=== PATIENT | female | born 1950 | race Caucasian/White ===

== ENCOUNTER 2020-05-15 12:23 | Outpatient (RCR) | payer MEDICARE, OTHER, SELFPAY | END 2020-06-02 23:59 | disposition home or self-care (01) | LOC: SPT 12:23 | PROVIDERS: Family Provider Family Medicine; PCP Family Medicine; Referring Provider Family Medicine; Visit Provider Family Medicine | DX: R32 Unspecified urinary incontinence (principal) | CPT/HCPCS: 97110; 97161; 97530 ==

== ENCOUNTER 2020-06-03 06:00 | Outpatient (RCR) | payer MEDICARE, OTHER, SELFPAY | END 2020-07-03 23:59 | disposition home or self-care (01) | LOC: SPT 06:00 | PROVIDERS: Family Provider Family Medicine; PCP Family Medicine; Referring Provider Family Medicine; Visit Provider Family Medicine | DX: M54.5 Low back pain (principal) | CPT/HCPCS: 97110; 97112; 97164; 97530 ==

== ENCOUNTER 2020-07-04 06:00 | Outpatient (RCR) | payer MEDICARE, OTHER, SELFPAY | END 2020-08-03 23:59 | disposition home or self-care (01) | LOC: SPT 06:00 | PROVIDERS: PCP Family Medicine; Referring Provider Family Medicine; Visit Provider Family Medicine | DX: M54.5 Low back pain (principal) | CPT/HCPCS: 97110; 97112 ==

== ENCOUNTER 2020-08-04 06:00 | Outpatient (RCR) | payer MEDICARE, OTHER, SELFPAY | END 2020-08-28 23:00 | disposition home or self-care (01) | LOC: SPT 06:00 | PROVIDERS: PCP Family Medicine; Referring Provider Family Medicine; Visit Provider Family Medicine | DX: M54.5 Low back pain (principal) | CPT/HCPCS: 97110; 97530 ==

== ENCOUNTER → 2021-04-06 14:49 | Outpatient (BNVA) | payer MEDICARE, OTHER, SELFPAY | PROVIDERS: PCP Family Medicine; Referring Provider Family Medicine; Visit Provider Specialist | DX: M16.11 Unilateral primary osteoarthritis, right hip (principal) | CPT/HCPCS: 73502 ==

== ENCOUNTER 2021-04-16 16:34 | Outpatient (CLI) | payer MEDICARE, OTHER, SELFPAY ==
--- NOTE | 2021-04-16 16:45 | MR_ITS ---
WS: [id number] MRI BILATERAL HIPS without CONTRAST. COMPARISON: 04/06/2021 Multiplanar, multisequence imaging is performed without contrast. There is a small amount of increased T2 signal within the RIGHT greater trochanter extending towards the intertrochanteric line. There is a small subchondral cyst over the greater trochanter. No fractur e identified. There is a small amount of increased T2 signal and edema within the tendons of the glut eus minimus and medius at the greater trochanter. There is mild fluid distention of the greater troch anteric bursa. There is a very small amount of increased T2 signal in the gluteus tendons over the LEFT greater troc hanter. No focal fluid. Only a tiny amount of increased marrow signal in the greater trochanter. No f ractures. The remaining soft tissues of the pelvis are symmetric. SI joints are negative with no edema. No eros ions are identified. MR/MR hips BI wo con [id number] IMPRESSION: 1. Moderate amount of increased T2 signal in the RIGHT gluteus minimus and med ius muscles and tendons over the greater trochanter with adjacent free fluid. T his is most consistent with a bursitis. 2. There is also small amount of marrow edema in the RIGHT greater trochanter extending towards the intertrochanteric line. No fracture identified.
== END 2021-04-16 16:35 | disposition home or self-care (01) ==
LOC: RADSHAW 16:37
PROVIDERS: PCP Family Medicine; Visit Provider Specialist
DX: M25.552 Pain in left hip (principal); M25.551 Pain in right hip; R60.9 Edema, unspecified
CPT/HCPCS: 73721

== ENCOUNTER → 2021-06-17 08:20 | Outpatient (BNVA) | payer MEDICARE, OTHER, SELFPAY | PROVIDERS: PCP Family Medicine; Referring Provider Specialist; Visit Provider Anesthesiology Pain Medicine | DX: M25.552 Pain in left hip (principal); M70.61 Trochanteric bursitis, right hip; M48.062 Spinal stenosis, lumbar region with neurogenic claudication; M47.816 Spondylosis without myelopathy or radiculopathy, lumbar region; M51.36 Other intervertebral disc degeneration, lumbar region; Z79.899 Other long term (current) drug therapy; Y93.9 Activity, unspecified | CPT/HCPCS: 99204; 99205 ==

== ENCOUNTER 2021-06-22 15:56 | Outpatient (CLI) | payer MEDICARE, OTHER, SELFPAY ==
--- NOTE | 2021-06-22 16:15 | CT_ITS ---
WS: [id number] Exam: CT hip RT wo con* [id number] Date/Time of Exam: 06/22/2021 4:30 PM Reason For Exam: M25.559 - Pain in unspecified hip DLP: 689.[address] scans at [facility] use at least one of these dose optimization techniques: automated e xposure control; mA and/or kV adjustment per patient size (includes targeted exams where dose is matc hed to clinical indication); or iterative reconstruction. The hip is evaluated in the axial plane with sagittal and coronal reformatted images. No acute fracture or dislocation. Mild DJD of the joint compartment. No obvious joint effusion. No phuong ne destruction. Adjacent myofascial soft tissue structures are unremarkable. CT/CT hip RT wo con* [id number] IMPRESSION: 1. No acute fracture or bone destruction. 2. Mild DJD of the joint compartment. 3. Adjacent soft tissue structures are unremarkable. No joint effusion.
== END 2021-06-22 15:57 | disposition home or self-care (01) ==
PROVIDERS: PCP Family Medicine; Visit Provider Specialist
DX: M16.11 Unilateral primary osteoarthritis, right hip (principal)
CPT/HCPCS: 73700

== ENCOUNTER → 2021-07-08 14:31 | Outpatient (BNVA) | payer MEDICARE, OTHER, SELFPAY | PROVIDERS: PCP Family Medicine; Visit Provider Anesthesiology Pain Medicine | DX: M70.61 Trochanteric bursitis, right hip (principal); E11.9 Type 2 diabetes mellitus without complications; M54.9 Dorsalgia, unspecified; Z01.812 Encounter for preprocedural laboratory examination; Y93.9 Activity, unspecified | CPT/HCPCS: 20610; 36416; 77002; 82962; J1030; J3490 ==

== ENCOUNTER 2021-07-20 15:41 | Outpatient (CLI) | payer MEDICARE, OTHER, SELFPAY ==
--- NOTE | 2021-07-20 16:00 | MR_ITS ---
WS: [id number] MRI LUMBAR SPINE NONCONTRAST TECHNIQUE: Sagittal T1, T2 and STIR imaging. Axial T1 and T2 imaging. CLINICAL INFORMATION: M48.062 - Spinal stenosis, lumbar region with neurogenic ... COMPARISON: None. FINDINGS: Small disc protrusion T3-4 seen on the change room attendant imaging with mild to moderate central canal stenosis and indentation on the thoracic cord. Mild central canal stenosis in the cervical spine at C4-C6. Mild lumbar curve. No acute compression. Disc bulging worse L4-5. L1-L2: No significant disc bulging. Spinal canal and foramen are patent. L2-L3: Mild disc bulging with slight effacement of ventral thecal sac. Slight narrowing of the subart icular recess bilaterally. Mild facet arthropathy. Foramen are patent. Mild annular bulging with slig ht effacement of ventral thecal sac. L3-L4: Mild right foraminal narrowing with a small right foraminal protrusion. Mild to moderate facet arthropathy. Spinal canal is patent. L4-L5: Mild disc bulging with slight effacement of ventral thecal sac. Mild right and no significant left foraminal narrowing. Narrowing of the subarticular recess bilaterally. Mild to moderate facet ar thropathy. L5-S1: Mild disc osteophytic ridging. Mild facet arthropathy. Spinal canal and foramen are patent. Visualized pelvic bony structures: Normal. Paravertebral soft tissues: Normal. MR/MR lumbar spine wo con* [id number] IMPRESSION: 1. Small right foraminal protrusion L3-4 with slight impingement on the exitin g right L3 nerve root and mild right foraminal narrowing. 2. Right eccentric disc bulging L4-5 with mild right L4-5 foraminal narrowing. Contact of the exiting right L4 nerve root. 3. Annular bulging L4-5 with slight narrowing of the subarticular recess bilat erally. 4. Central disc protrusion T3-T4 seen on the change room attendant imaging with mild to modera te central canal stenosis and slight indentation on the thoracic cord. This can be further evaluated with thoracic spine MRI.
== END 2021-07-20 15:42 | disposition home or self-care (01) ==
PROVIDERS: PCP Family Medicine; Visit Provider Anesthesiology Pain Medicine
DX: M48.062 Spinal stenosis, lumbar region with neurogenic claudication (principal); M51.26 Other intervertebral disc displacement, lumbar region; M51.24 Other intervertebral disc displacement, thoracic region
CPT/HCPCS: 72148

== ENCOUNTER → 2021-07-22 09:39 | Outpatient (BNVA) | payer MEDICARE, OTHER, SELFPAY | PROVIDERS: PCP Family Medicine; Visit Provider Anesthesiology Pain Medicine | DX: M47.816 Spondylosis without myelopathy or radiculopathy, lumbar region (principal); M51.36 Other intervertebral disc degeneration, lumbar region; M70.61 Trochanteric bursitis, right hip; Y93.9 Activity, unspecified | CPT/HCPCS: 99214 ==

== ENCOUNTER → 2021-07-30 14:40 | Outpatient (BNVA) | payer MEDICARE, OTHER, SELFPAY | PROVIDERS: PCP Family Medicine; Visit Provider Anesthesiology Pain Medicine | DX: M54.16 Radiculopathy, lumbar region (principal); E11.9 Type 2 diabetes mellitus without complications; Z79.84 Long term (current) use of oral hypoglycemic drugs | CPT/HCPCS: 36416; 64483; 64484; 82962 ==

== ENCOUNTER → 2021-08-12 13:15 | Outpatient (BNVA) | payer MEDICARE, OTHER, SELFPAY | PROVIDERS: PCP Family Medicine; Visit Provider Anesthesiology Pain Medicine | DX: M54.16 Radiculopathy, lumbar region (principal); E11.9 Type 2 diabetes mellitus without complications | CPT/HCPCS: 36416; 64483; 64484; 82962; J1100; J3490 ==

== ENCOUNTER → 2021-09-01 14:00 | Outpatient (BNVA) | payer MEDICARE, OTHER, SELFPAY | PROVIDERS: PCP Family Medicine; Visit Provider Anesthesiology Pain Medicine | DX: M25.512 Pain in left shoulder (principal); M70.61 Trochanteric bursitis, right hip; M47.816 Spondylosis without myelopathy or radiculopathy, lumbar region; M51.36 Other intervertebral disc degeneration, lumbar region; M79.604 Pain in right leg; M79.605 Pain in left leg; Y93.9 Activity, unspecified | CPT/HCPCS: 99215 ==

== ENCOUNTER → 2022-06-30 10:06 | Outpatient (BNVA) | payer MEDICARE, OTHER, SELFPAY | PROVIDERS: PCP Family Medicine; Visit Provider Internal Medicine Pulmonary Disease | DX: I25.10 Atherosclerotic heart disease of native coronary artery without angina pectoris (principal); G47.33 Obstructive sleep apnea (adult) (pediatric); Z86.73 Personal history of transient ischemic attack (TIA), and cerebral infarction without residual deficits | CPT/HCPCS: 99213; 99214 ==

== ENCOUNTER 2022-12-22 17:44 | Emergency (ER) | payer MEDICARE, OTHER, SELFPAY ==
[2022-12-22] VITALS (8 sets, daily range): BP systolic 113–140; BP diastolic 55–71; PULSE 66–83; RESP 14–16; TEMP 36.7; O2SAT 96–99; BMI 28.3
--- NOTE | 2022-12-22 18:03 | ECG_ITS ---
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 Measurements Intervals Christopher Rate: 82 P: 2 AZ: 134 QRS: -12 QRSD: 93 T: 21 QT: 378 QTc: 442 Interpretive Statements SINUS RHYTHM Compared to ECG 01/02/2019 22:58:08 Sinus bradycardia no longer present Electronically Signed On 12-22-2022 18:19:04 CDT by Gorge Flowers M.D. [id number]
--- NOTE | 2022-12-22 18:05 | XRR_ITS ---
PROCEDURE INFORMATION: Exam: XR Chest Exam date and time: 12/22/2022 6:15 PM Age: 72 years old Clinical indication: Other: CVA TECHNIQUE: Imaging protocol: Radiologic exam of the chest. Views: 1 view. COMPARISON: CR XR chest 1V [id number] 01/02/2019 6:26 PM FINDINGS: Lungs: Visualized portions of the lungs are clear. Pleural spaces: Unremarkable. No pleural effusion. No pneumothorax. Heart/Mediastinum: Heart is within normal limits of size. Vasculature: There is some atherosclerotic calcification of the aortic arch. Bones/joints: Unremarkable. XR/XR chest 1V portable [id number] IMPRESSION: No acute infiltrate.
--- NOTE | 2022-12-22 18:05 | CTR_ITS ---
PROCEDURE INFORMATION: Exam: CT Head Without Contrast Exam date and time: 12/22/2022 6:07 PM Age: 72 years old Clinical indication: Stroke-like symptoms; Other: RT face numbness/paresthesia; Additional info: Symptoms of acute stroke TECHNIQUE: Imaging protocol: Computed tomography of the head without contrast. Radiation optimization: All CT scans at this facility use at least one of these dose optimization techniques: automated exposure control; mA and/or kV adjustment per patient size (includes targeted exams where dose is matched to clinical indication); or iterative reconstruction. Other technique: STROKE PROTOCOL was implemented. REPORTING DATA: Count of CT and Cardiac NM exams in prior 12 months: This patient has received 0 known CTs and 0 known cardiac nuclear medicine studies in the 12 months prior to the current study. COMPARISON: CT Head wo IV contrast* [id number] 01/02/2019 6:10 PM RADIATION DOSE METRICS: Total DLP (mGy-cm): 1045 FINDINGS: Brain: There is a chronic right-sided infarct in the right basal ganglia region corresponding with the location of the infarcts seen on 01/02/2019. There is mild cortical atrophy. Low-density changes in the white matter are consistent with nonspecific small vessel chronic ischemic change. There is no intracranial mass, hemorrhage or edema. Cerebral ventricles: No ventriculomegaly. Paranasal sinuses: Visualized sinuses are unremarkable. No fluid levels. Mastoid air cells: Visualized mastoid air cells are well aerated. Bones/joints: Unremarkable. No acute fracture. Soft tissues: Unremarkable. CT/CT head thrombolytic [id number] IMPRESSION: Chronic lacunar infarct. No acute intracranial finding. ASSESSMENT: ASPECTS ([place] Stroke Program Early CT Score) is 10.
--- NOTE | 2022-12-22 18:08 | W.ED.NEUROSD ---
HPI - Neuro Symptoms/Deficit General: Chief Complaint: Neuro Symptoms/Deficit Stated Complaint: stroke like symptoms Time Seen by Provider: 12/22/22 17:58 History of Present Illness: Presents to the ER with complaining of right-sided weakness and tingling numbness in her right face. Patient said she laid down at 4 PM and when she woke up at 4:30 PM she had this going on. And it was not going on when she laid down. Patient has had a right-sided stroke in the past with similar symptoms. Patient has no obvious deficit at this time. Patient does take 81 mg aspirin daily but is on no other anticoagulant. Onset (ago): hour(s) (1.5 hours ago) Last Observed Normal: 16:00 Timing confirmed by: spouse Location: right face History of same: Yes Severity: similar to previous episodes Quality: numb and tingling Relieving factors: none Exacerbating factors: none Context: sudden onset (Woke up this way) On Anticoagulants: No Associated symptoms: Reports headache(s) Treatments Prior to Arrival: none and Aspirin (Patient takes an 81 mg aspirin every day and that roughly 5 PM she took another aspirin of unknown strength.) Review of Systems General: Reports: 10 or more systems reviewed and unremarkable except in HPI and below Neuro: Reports: headache(s) PFSH ED PFSH: Medical History ASHD (arteriosclerotic heart disease) History of CVA (cerebrovascular accident) Hyperlipidemia associated with type 2 diabetes mellitus Family History Other CAD (coronary artery disease) Diabetes Stroke Social History Smoking and tobacco status: never smoked Alcohol intake: never Substance/Drug Use: never Caregiver/support person: Yes Lives independently: Yes Physical Exam Const: COMMON NORMALS: no acute distress, average body habitus, patient oriented x3, no limitations, healthy appearing, alert and well nourished HENMT: COMMON NORMALS: normocephalic, atraumatic, hearing grossly normal bilaterally, external ears normal, Normal external nose present and moist oral mucous membranes HEAD & SCALP: normocephalic and atraumatic NOSE: Normal external nose present EXTERNAL EAR: Yes external ears normal Eye: COMMON NORMALS: Equal, round and reactive pupils present, EOMs intact bilaterally, conjunctivae normal and no scleral icterus CONJUNCTIVA: Yes conjunctivae normal PUPIL: Yes Equal, round and reactive pupils present Neck/C-Spine: COMMON NORMALS: full ROM, no lymphadenopathy, supple, no meningeal signs, no JVD and Thyroid normal THYROID: Thyroid normal Lymph: LYMPHATIC: no lymphadenopathy noted Chest: COMMONS NORMALS: normal inspection of the chest and normal palpation of entire chest wall Resp: COMMON NORMALS: normal respiratory effort, No retractions, No use of accessory muscles and clear to auscultation bilaterally AUSCULTATION: clear to auscultation bilaterally Cardio: COMMON NORMALS: no JVD, regular rate, regular rhythm, S1 normal heart sound present, S2 normal heart sound present, No gallops present (Cardio), No clicks present (Cardio), No murmurs present (Cardio) and No rub (Cardio) RATE: regular rate RHYTHM: regular rhythm HEART SOUNDS: S1 normal heart sound present and S2 normal heart sound present GI: COMMON NORMALS: Normal to inspection, nondistended, normoactive bowel sounds present, Soft to palpation, non-tender, No hepatosplenomegaly present and no masses PALPATION: Yes Soft to palpation and Yes No hepatosplenomegaly present : COMMON NORMALS: Yes no CVA tenderness BLADDER/KIDNEY EXAM: Yes no CVA tenderness Back/Pelvis: COMMON NORMALS: no CVA tenderness Extremity: COMMON NORMALS: normal to inspection and full ROM Neuro: COMMON NORMALS: patient oriented x3, CN's II-XII intact bilaterally, moves all extremities and no focal motor deficits SENSORIUM/ORIENTATION: Yes alert MENINGEAL SIGNS: Yes no meningeal signs Course Vital Signs: Vital signs: Vital Signs Temperature 98.0 F 12/22/22 17:51 Pulse Rate 69 12/22/22 18:57 Respiratory Rate 14 12/22/22 17:57 Blood Pressure 117/71 12/22/22 18:57 Pulse Oximetry 99 12/22/22 18:57 Oxygen Delivery Me thod Room Air 12/22/22 17:51 MDM - Neuro Symptoms/Deficit Medical Decision Making Dr. Lyons notified and case discussed with her she says the patient is probably not a tPA candidate due to negative findings on NIH. Stroke work-up was obtained which showed chest x-ray no acute infiltrate, head CT no acute cranial findings, lab work was essentially benign and urine showed positive for potential urinary tract infection. Patient symptoms have totally dissipated. Patient be discharged home on antibiotics and were told to follow-up with her primary care doctor in the next 1 week for potential for MRI. Patient should continue her daily aspirin as previously directed. Differential Diagnosis Likely cerebrovascular accident; Unlikely carpal tunnel syndrome, convulsions, delirium, subarachnoid hemorrhage, peripheral neuropathy, multiple sclerosis or transient cerebral ischemia Medical Records I reviewed the patient's medical records. Lab Data I reviewed the patient's lab results. 12/22/22 18:05 12/22/22 18:05 Radiology Impressions Chest X-Ray 12/22/22 18:05 IMPRESSION: No acute infiltrate. Head CT 12/22/22 18:05 IMPRESSION: Chronic lacunar infarct. No acute intracranial finding. ASSESSMENT: ASPECTS ([place] Stroke Program Early CT Score) is 10. Laboratory Results WBC 7.1 10^3/uL (4.0-10.0) 12/22/22 18:05 RBC 4.58 10^6/uL (4.1-5.3) 12/22/22 18:05 Hgb 13.5 g/dL (11.5-15.3) 12/22/22 18:05 Hct 42.6 % (37.0-47.0) 12/22/22 18:05 MCV 93.0 fl (81-99) 12/22/22 18:05 MCH 29.5 pg (28.0-34.0) 12/22/22 18:05 MCHC 31.7 g/dL (30.0-36.0) 12/22/22 18:05 RDW 12.9 % (12.1-15.1) 12/22/22 18:05 Plt Count 225 10^3/cmm (130-400) 12/22/22 18:05 MPV 11.5 fL (7.4-10.4) H 12/22/22 18:05 Neut % (Auto) 42.4 % 12/22/22 18:05 Lymph % (Auto) 28.2 % 12/22/22 18:05 [place] % (Auto) 7.9 % 12/22/22 18:05 Eos % (Auto) 20.6 % 12/22/22 18:05 Baso % (Auto) 0.8 % 12/22/22 18:05 Neut # (Auto) 3.02 10^3/uL (1.8-7.7) 12/22/22 18:05 Lymph # (Auto) 2.0 10^3/uL (0.8-4.8) 12/22/22 18:05 [place] # (Auto) 0.6 10^3/uL (0.2-0.9) 12/22/22 18:05 Eos # (Auto) 1.5 10^3/uL (0.0-0.8) H 12/22/22 18:05 Baso # (Auto) 0.1 10^3/uL (0.0-0.1) 12/22/22 18:05 Nucleated RBC % (auto) 0 % 12/22/22 18:05 Nucleated RBCs # 0.0 /100WBC 12/22/22 18:05 PT 13.00 SECONDS (12.1-14.9) 12/22/22 18:05 INR 0.95 (0.8-1.2) 12/22/22 18:05 APTT 29.4 SECONDS (23.9-36.7) 12/22/22 18:05 Sodium 141 mmol/L (136-145) 12/22/22 18:05 Potassium 3.9 mmol/L (3.5-5.1) 12/22/22 18:05 Chloride 107 mmol/L (98-107) 12/22/22 18:05 Carbon Dioxide 22 mmol/L (22-29) 12/22/22 18:05 Anion Gap 15.9 (5-19) 12/22/22 18:05 BUN 10 mg/dL (8-23) 12/22/22 18:05 Creatinine 0.8 mg/dL (0.5-0.9) 12/22/22 18:05 GFR Calculation Not Reportable 12/22/22 18:05 Glucose 91 mg/dL (65-115) 12/22/22 18:05 POC Glucose 83 mg/dL (70-110) 12/22/22 18:50 Calculated Osmolality 291 mOsm/kg (285-295) 12/22/22 18:05 Calcium 9.3 mg/dL (8.5-10.5) 12/22/22 18:05 Total Bilirubin 0.7 mg/dL (0.15-1.2) 12/22/22 18:05 AST 14 U/L (0-32) 12/22/22 18:05 ALT 16 U/L (0-33) 12/22/22 18:05 Alkaline Phosphatase 85 U/L (35-105) 12/22/22 18:05 Total Protein 7.3 g/dL (6.6-8.7) 12/22/22 18:05 Albumin 4.3 g/dL (3.5-5.2) 12/22/22 18:05 Globulin 3.0 g/dL (1.3-4.6) 12/22/22 18:05 Urine Color Yellow (Yellow) 12/22/22 19:53 Urine Appearance Cloudy (CLEAR) A 12/22/22 19:53 Urine pH 5 (5-7) 12/22/22 19:53 Ur Specific [place] 1.010 (1.005-1.030) 12/22/22 19:53 Urine Protein Neg (Negative) 12/22/22 19:53 Urine Glucose (UA) Norm (Normal) 12/22/22 19:53 Urine Ketones Negative (Negative) 12/22/22 19:53 Urine Blood Neg (Negative) 12/22/22 19:53 Urine Nitrate Negative (Negative) 12/22/22 19:53 Urine Bilirubin Neg (Negative) 12/22/22 19:53 Urine Urobilinogen Norm mg/dL (Negative) 12/22/22 19:53 Ur Leukocyte Esterase 1+ (Negative) H 12/22/22 19:53 Urine RBC 0-4 /hpf (0-2) H 12/22/22 19:53 Urine WBC 10-15 /hpf (0-5) H 12/22/22 19:53 Ur Squamous Epith Cells 5-10 /hpf (0-5) H 12/22/22 19:53 Ur Transition Epith Cell 0-4 /hpf 12/22/22 19:53 Amorphous Sediment Not Reportable 12/22/22 19:53 Urine Bacteria 2+ /hpf (NONE) H 12/22/22 19:53 Urine Opiates Screen Negative ng/mL (Negative) 12/22/22 19:53 Ur Barbiturates Screen Negative ng/mL (Negative) 12/22/22 19:53 Ur Phencyclidine Scrn Negative ng/mL (Negative) 12/22/22 19:53 Ur Amphetamines Screen Negative ng/mL (Negative) 12/22/22 19:53 U Benzodiazepines Scrn Negative ng/mL (Negative) 12/22/22 19:53 Urine Cocaine Screen Negative ng/mL (Negative) 12/22/22 19:53 U Marijuana (THC) Screen Negative ng/mL (Negative) 12/22/22 19:53 EKG Data EKG 1: I personally reviewed and interpreted this EKG as follows: EKG interpretation date: 12/22/22 EKG interpretation time: 18:03 Prior EKG tracings: not available for review Interpretation: EKG showed normal sinus rhythm with a ventricular rate of 82 bpm, LA interval 134, QRS duration 93, QTc of 416, no ST-T wave changes Discharge Plan Discharge Patient Disposition: Home Clinical Impression: Paresthesia, History of CVA with residual deficit Condition: Stable Prescriptions: No Action aspirin [Adult Low Dose Aspirin] 81 mg tablet,delayed release (DR/EC) 81 mg PO DAILY atorvastatin 10 mg tablet 10 mg PO DAILY omega-3 fatty acids [Fish Oil Concentrate] 1,000 mg capsule 1,000 mg PO DAILY coenzyme Q10 [Co Q-10] 100 mg capsule 100 mg PO DAILY metformin 1,000 mg tablet 1,000 mg PO BID metoprolol tartrate 25 mg tablet 25 mg PO BID pantoprazole 40 mg tablet,delayed release (DR/EC) 40 mg PO DAILY nattokinase as directed ginkgo biloba 40 mg tablet 40 mg PO TID Rx Instructions: give with meal/snack fluticasone propionate [Flonase Allergy Relief] 50 mcg/actuation spray,suspension 1 spray intranasal BID Qty: 16 0RF Rx Instructions: administer into each nostril Zyrtec 10 mg capsule 10 mg PO DAILY Qty: 30 0RF gabapentin 300 mg capsule 300 mg PO BID Rx Instructions: 1 capsule in A.M, 2 capsules at bedtime lutein 40 mg capsule 40 mg PO DAILY Rx Instructions: administer with meals Discharge Orders: Discharge ED (Routine); Ordered 12/22/22 Ordered By: Leandro Melvin Referrals: Paulo Mckeon MD [Primary Care Provider] - 1 week Patient Instructions: Paresthesia (ED) Activity Restrictions/Additional Instructions: Please follow-up with your primary care physician as you may benefit from further evaluation and treatment with things such as an MRI and/or referral to a neurologist. If the symptoms return feel free to come back to the ER emergently as your condition may have changed. Coding Level of Care Code ED Security Systems Engineer for Georges Clements
[2022-12-22 18:34] LABS: Basophils # 0.1 10^3/uL (0.0-0.1); Basophils % 0.8 %; Eosinophils # 1.5 10^3/uL (0.0-0.8); Eosinophils % 20.6 %; Hematocrit 42.6 % (37.0-47.0); Hemoglobin 13.5 g/dL (11.5-15.3); Lymphocytes % 28.2 %; Mean Corpuscular HGB Conc 31.7 g/dL (30.0-36.0); Mean Corpuscular Hemoglobin 29.5 pg (28.0-34.0); Mean Platelet Volume 11.5 fL (7.4-10.4); Monocytes # 0.6 10^3/uL (0.2-0.9); Monocytes % 7.9 %; Neutrophils # 3.02 10^3/uL (1.8-7.7); Neutrophils % 42.4 %; Nucleated Red Blood Cells % 0 %; Platelet Count 225 10^3/cmm (130-400); Red Blood Count 4.58 10^6/uL (4.1-5.3); Red Cell Distribution Width 12.9 % (12.1-15.1); White Blood Count 7.1 10^3/uL (4.0-10.0)
[2022-12-22 18:45] LABS: INR 0.95 (0.8-1.2)
[2022-12-22 18:46] LABS: Partial Thromboplastin Time 29.4 SECONDS (23.9-36.7)
[2022-12-22 18:53] LABS: Alanine Aminotransferase 16 U/L (0-33); Albumin Level 4.3 g/dL (3.5-5.2); Alkaline Phosphatase 85 U/L (35-105); Anion Gap 15.9 (5-19); Aspartate Amino Transferase 14 U/L (0-32); Blood Urea Nitrogen 10 mg/dL (8-23); Calcium 9.3 mg/dL (8.5-10.5); Carbon Dioxide 22 mmol/L (22-29); Chloride 107 mmol/L (98-107); Creatinine Clr Calc Pharmacy 65.2702; Glucose 91 mg/dL (65-115); Osmolality Calculated 291 mOsm/kg (285-295); Potassium 3.9 mmol/L (3.5-5.1); Sodium 141 mmol/L (136-145); Total Bilirubin 0.7 mg/dL (0.15-1.2); Total Protein 7.3 g/dL (6.6-8.7)
[2022-12-22 18:53] LABS: Glucose Point of Care 83 mg/dL (70-110)
[2022-12-22 20:12] LABS: Amphetamines Screen Urine Negative (Negative); Barbiturates Screen Urine Negative (Negative); Benzodiazepines Screen Urine Negative (Negative); Cocaine Screen Urine Negative (Negative); Opiate Screen Urine Negative (Negative); PCP Screen Urine Negative (Negative); THC Screen Urine Negative (Negative)
[2022-12-22 20:21] LABS: Add Urine Culture? Yes; Add Urine Microscopic? YES; Bacteria Urine 2+ /hpf; Bilirubin Urine Neg (Negative); Blood Urine Neg (Negative); Glucose Urine UA Norm (Normal); Ketones Urine Negative (Negative); Leukocyte Esterase Urine 1+ (Negative); Nitrate Urine Negative (Negative); Protein Urine Neg (Negative); RBC Urine 0-4 /hpf (0-2); Transitional Epi Cells Urine 0-4 /hpf; Urine Appearance Cloudy (CLEAR); Urine Color Yellow (Yellow); Urobilinogen Urine Norm (Negative); pH Urine 5 (5-7)
== END 2022-12-22 21:17 | disposition home or self-care (01) ==
PROVIDERS: Emergency Provider Emergency Medicine; PCP Family Medicine
DX: R20.2 Paresthesia of skin (principal); I69.951 Hemiplegia and hemiparesis following unspecified cerebrovascular disease affecting right dominant side; I69.998 Other sequelae following unspecified cerebrovascular disease; I10 Essential (primary) hypertension
CPT/HCPCS: 36416; 70450; 71045; 80053; 80306; 81001; 82962; 85025; 85610; 85730; 87077; 87086; 87186; 93005; 99285

== ENCOUNTER 2023-02-10 07:52 | Outpatient (CLI) | payer MEDICARE, OTHER, SELFPAY ==
--- NOTE | 2023-02-10 08:08 | MR_ITS ---
WS: [id number] MRA ANGIOGRAPHY [place] HISTORY: CVA COMPARISON: None available. TECHNIQUE: 3-D MR angiography is performed of the [place]. All images are reviewed including source images. Distal vertebral and basilar arteries are intact with no significant stenosis or plaque. Posterior ce rebral arteries are normal course and caliber. Posterior communicating arteries are both patent. Smal l hypoplastic right posterior communicating artery. Intracranial portion of the internal carotid arteries are normal course and caliber. No significant a therosclerosis, stenosis or aneurysm identified. Middle and anterior cerebral arteries are both paten t with no significant disease. Anterior communicating artery is also normal. IMPRESSION: Normal MRA [place].
--- NOTE | 2023-02-10 08:08 | MR_ITS ---
WS: [id number] MRA CAROTID ARTERIES HISTORY: CVA COMPARISON: None available. TECHNIQUE: MRA is performed with intravenous gadolinium. MIP and source images are reviewed. Right: Normal common, internal and external carotid arteries. No atherosclerotic plaque or stenosis. Left: Normal origin of the left common carotid artery. Moderate stenosis of approximately 50% at the origin of the ICA. Patent ECA. Subclavian Arteries: Normal. Vertebral Arteries: Mildly dominant left vertebral artery. Right vertebral arteries patent IMPRESSION: 1. Moderate stenosis of near 50% at the origin left ICA. Recommend follow-up CT angiogram or carotid ultrasound to confirm stenosis. 2. No stenosis left ICA.
[2023-02-10] MEDS: gadobenate dimeglumine 20 mL vial IV (09:35)
== END 2023-02-10 07:53 | disposition home or self-care (01) ==
PROVIDERS: PCP Family Medicine; Visit Provider Family Medicine
DX: I63.9 Cerebral infarction, unspecified (principal); I77.9 Disorder of arteries and arterioles, unspecified
CPT/HCPCS: 70544; 70548; A9577

== ENCOUNTER → 2023-03-01 14:57 | Outpatient (BNVA) | payer MEDICARE, OTHER, SELFPAY | PROVIDERS: PCP Family Medicine; Referring Provider Family Medicine; Visit Provider Thoracic Surgery (Cardiothoracic Vascular Surgery) | DX: I65.22 Occlusion and stenosis of left carotid artery (principal); I25.10 Atherosclerotic heart disease of native coronary artery without angina pectoris; Z79.82 Long term (current) use of aspirin; Z86.73 Personal history of transient ischemic attack (TIA), and cerebral infarction without residual deficits | CPT/HCPCS: 99203 ==

== ENCOUNTER 2023-03-16 06:32 | Outpatient (CLI) | payer MEDICARE, OTHER, SELFPAY ==
--- NOTE | 2023-03-16 06:45 | USCV_ITS ---
Stephy Causey Age: 73 Gender: F : 1950 Exam Date: 03/16/2023 06:49 Ordering Phys: Yariel Ross MD (Andy) [email or web address] [place] Technologist: Linda Iraheta Exam Location: [facility] [place] Indication: HISTORY OF CVA. SEE MRI Risk Factors: Unknown Previous Vascular Surgery: CARDIAC STENT PLACED 7 YEARS AGO. HX OF CVA Right Brachial BP: / Left Brachial BP: / Right Left Velocity (cm/s) Spectral Plaque Velocity (cm/s) Spectral Plaque Syst/Diast Broadening Syst/Diast Broadening 118.00/29.80 Prox CCA 86.80 / 20.70 68.40/ 14.80 Mid CCA 68.00 / 13.80 66.80/ 13.20 Distal CCA 68.00 / 18.70 76.20/ 21.30 Prox ICA 77.90 / 15.80 Hetro 97.60/ 29.60 Mid ICA 90.70 / 22.70 85.80/ 29.60 Distal ICA 80.80 / 20.70 77.70 ECA 85.80 1.43 ICA/CCA 1.33 Antegrade Vertebral Antegrade 36.40/ 11.20 cm/s 46.30/ 13.80 cm/s Tri Subclavian Tri 110.4 106.5 0 0 FINDINGS Comparison:. 01/03/19 No significant elevation of systolic or diastolic velocities. Mild, bilateral scattered calcified plaque and intimal thickening throughout the common carotid arteries and extending through the bifurcation. Antegrade vertebral arteries. CONCLUSIONS Bilateral ICA stenosis less than 50%. Mild carotid atherosclerosis. Dr. Jeanna Almazan DO (Electronically Signed) Final Date: 16 March 2023 09:34 S
--- NOTE | 2023-03-16 07:15 | USCV_ITS ---
Stephy Causey Age: 73 Gender: F : 1950 Exam Date: 03/16/2023 07:11 Ordering Phys: Yariel Ross MD (Andy) ([email or web address]) Technologist: Linda Iraheta Exam Location: [facility] [place] Indication: Stent placed 7 years ago. Recheck BP: 120 / 60 HR: 78 Rhythm: Sinus Technical Quality: Adequate MEASUREMENTS (Male / Female) Normal Values 2D ECHO LV Diastolic Diameter PLAX 3.3 cm 4.2 - 5.9 / 3.9 - 5.3 cm LV Systolic Diameter PLAX 2.0 cm LV Chamber Size 2.7 cm IVS Diastolic Thickness 1.0 cm 0.6 - 1.0 / 0.6 - 0.9 cm IVS Systolic Thickness 0.9 cm LVPW Diastolic Thickness 1.0 cm 0.6 - 1.0 / 0.6 - 0.9 cm LVPW Systolic Thickness 1.2 cm RV Chamber Size 2.8 cm LVOT Diameter 2.0 cm LV Ejection Fraction 2D Teich 69.4 % LV Ejection Fraction MOD 2C 57.7 % LV Ejection Fraction 2C AL 58.1 % LA Diameter 3.2 cm LA Width 2.4 cm LA Height 3.7 cm RA Width 2.9 cm RA Height 3.0 cm Aorta at Sinotubular Diameter 2.1 cm IVC Diameter 1.7 cm M-MODE Aortic Annulus Diameter 2.8 cm LA Ao Ratio MM 1.4 MV E Point Septal Separation 0.4 cm DOPPLER AV Peak Velocity 99.0 cm/s LVOT Peak Velocity 81.0 cm/s AV Area Cont Eq vti 2.5 cm squared AV Area Cont Eq pk 2.6 cm squared MV Area PHT 5.0 cm squared Mitral E to A Ratio 0.9 MV E' Velocity 67.0 cm/s Mitral E to LV E' Septal Ratio 9.2 TR Peak Velocity 142.2 cm/s TR Peak Gradient 8.1 mmHg TR Mean Velocity 95.7 cm/s TR Mean Gradient 4.3 mmHg TR Velocity Time Integral 31.4 cm TV Peak E Velocity 48.0 cm/s Right Atrial Pressure 3.0 mmHg Pulmonary Artery Systolic Pressu 11.1 mmHg PV Peak Velocity 72.0 cm/s RV Acceleration Time 0.2 s RV Ejection Time 0.3 s RV AcT/ET 0.6 FINDINGS Left Ventricle Normal left ventricular size, systolic function and wall thickness, with no regional wall motion abnormalities. Grade I/IV diastolic dysfunction (abnormal relaxation filling pattern), normal to mildly elevated filling pressures. Left ventricular ejection fraction is estimated at 60 %. Right Ventricle Normal right ventricular size and systolic function. Normal right ventricular systolic pressure. Right Atrium The right atrium is normal in size. Left Atrium The left atrium is normal in size. Mitral Valve Structurally normal mitral valve without significant stenosis or prolapse. There is no mitral regurgitation. Aortic Valve Structurally normal aortic valve without significant sclerosis or stenosis. There is no aortic regurgitation. Tricuspid Valve Structurally normal tricuspid valve without significant stenosis or regurgitation. Pulmonary artery systolic pressure is normal. Pulmonic Valve Pulmonic valve not well visualized. Pericardium Normal pericardium without effusion. Aorta Normal ascending aorta dimension. IVC The inferior vena cava appears normal. CONCLUSIONS Normal left ventricular size, systolic function and wall thickness, with no regional wall motion abnormalities. Grade I/IV diastolic dysfunction (abnormal relaxation filling pattern), normal to mildly elevated filling pressures. Left ventricular ejection fraction is estimated at 60 %. No change from the previous echo dated 01/04/2019. Dr. Rufino Pierce MD (Electronically Signed) Final Date: 16 March 2023 16:08 S
== END 2023-03-16 06:33 | disposition home or self-care (01) ==
LOC: RAD 06:33
PROVIDERS: PCP Family Medicine; Visit Provider Thoracic Surgery (Cardiothoracic Vascular Surgery)
DX: I65.23 Occlusion and stenosis of bilateral carotid arteries (principal); I25.10 Atherosclerotic heart disease of native coronary artery without angina pectoris; I51.89 Other ill-defined heart diseases; Z86.73 Personal history of transient ischemic attack (TIA), and cerebral infarction without residual deficits; Z95.5 Presence of coronary angioplasty implant and graft
CPT/HCPCS: 93306; 93880

== ENCOUNTER 2023-08-01 15:22 | Emergency (ER) | payer MEDICARE, OTHER, SELFPAY ==
--- NOTE | 2023-08-01 15:24 | XRR_ITS ---
PROCEDURE INFORMATION: Exam: XR Chest Exam date and time: 08/01/2023 4:06 PM Age: 73 years old Clinical indication: Pain; Angina pectoris; Additional info: Cp TECHNIQUE: Imaging protocol: Radiologic exam of the chest. Views: 1 view. COMPARISON: CR (CHEST, ) 12/22/2022 6:15 PM FINDINGS: Lungs: Unremarkable. No consolidation or mass. Pleural spaces: Unremarkable. No pleural effusion. No pneumothorax. Heart/Mediastinum: Unremarkable. No cardiomegaly. Bones/joints: Unremarkable. XR/XR chest 1V portable [id number] IMPRESSION: No acute findings.
--- NOTE | 2023-08-01 15:24 | ECG_ITS ---
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 Measurements Intervals [place] Rate: 90 P: 51 AR: 144 QRS: 63 QRSD: 80 T: 48 QT: 348 QTc: 426 Interpretive Statements SINUS RHYTHM Compared to ECG 12/22/2022 18:03:07 No significant changes Electronically Signed On 08-01-2023 19:29:39 TRUCKING CONTRACTOR by Arin Hughes M.D. [id number]
[2023-08-01 15:37] VITALS: BP 128/72; PULSE 87; RESP 16; TEMP 36.8; O2SAT 98; BMI 28.1
[2023-08-01 16:07] LABS: Basophils % 0.5 %; Eosinophils # 0.1 10^3/uL (0.0-0.8); Eosinophils % 1.9 %; Hematocrit 39.1 % (36-47); Lymphocytes # 1.7 10^3/uL (0.8-4.8); Lymphocytes % 26.4 %; Mean Corpuscular Hemoglobin 30.3 pg (27-33); Mean Corpuscular Volume 94.7 fl (85-98); Mean Platelet Volume 11.2 fL (7.4-10.4); Monocytes # 0.4 10^3/uL (0.2-0.9); Monocytes % 6.9 %; Neutrophils # 3.99 10^3/uL (1.8-7.7); Nucleated Red Blood Cells % 0 %; Platelet Count 218 10^3/cmm (157-399); Red Blood Count 4.13 10^6/uL (3.85-5.65); Red Cell Distribution Width 13.1 % (12.1-15.1); White Blood Count 6.24 10^3/uL (3.29-11.43)
[2023-08-01 16:18] LABS: INR 0.98 (0.8-1.2)
[2023-08-01 16:24] LABS: Troponin(5th) Baseline 12 ng/L (0-10)
[2023-08-01 16:27] LABS: Alanine Aminotransferase 20 U/L (0-33); Albumin Level 4.1 g/dL (3.5-5.2); Alkaline Phosphatase 74 U/L (35-105); Aspartate Amino Transferase 14 U/L (0-32); Blood Urea Nitrogen 16 mg/dL (8-23); Calcium 9.5 mg/dL (8.5-10.5); Carbon Dioxide 21 mmol/L (22-29); Chloride 104 mmol/L (98-107); Globulin 2.2 g/dL (1.3-4.6); Glucose 153 mg/dL (65-115); Lipase 60 U/L (13-60); Osmolality Calculated 292 mOsm/kg (285-295); Sodium 139 mmol/L (136-145); Total Bilirubin 0.3 mg/dL (0.15-1.2); Total Protein 6.3 g/dL (6.6-8.7)
--- NOTE | 2023-08-01 16:53 | ED_ITS ---
HPI - Chest Pain 2 General: Chief Complaint: Chest Pain Stated Complaint: chest pain Time Seen by Provider: 08/01/23 16:34 Source: patient Mode of arrival: ambulatory History of Present Illness: 73-year-old female who has multiple comp laints she states that over the last few weeks she has been having some dizziness along with some increased fatigue and left-sided chest pains. She states she also has some nausea mainly after her mid Giorno shot. She denies any pain currently but did have a stent placed 2 years ago and want to have her heart checked out. Denies any dyspnea. Associated symptoms: Reports abdominal pain; Deny dyspnea, fever(s), nausea or vomiting Review of Systems 2 Const: Reports: fatigue; Denies: fever(s), chills, body aches or change in appetite ENMT: Denies: throat pain or dental pain Card: Reports: chest pain Resp: Denies: dyspnea GI: Reports: abdominal pain; Denies: nausea, vomiting or diarrhea Musc: Denies: neck pain or back pain Skin/Breast: Denies: rash Neuro: Reports: dizziness; Denies: headache(s) PFSH ED 2 PFSH: Medical History Hyperlipidemia associated with type 2 diabetes mellitus History of CVA (cerebrovascular accident) ASHD (arteriosclerotic heart disease) Family History Other CAD (coronary artery disease) Diabetes Stroke Social History Smoking and tobacco/nicotine status: never used tobacco/nicotine Alcohol intake: never Substance/Drug Use: never Caregiver/support person: Yes Lives independently: Yes Physical Exam 2 Const: COMMON NORMALS: no acute distress, patient oriented x3 and healthy appearing HENMT: COMMON NORMALS: normocephalic and atraumatic HEAD & SCALP: n ormocephalic and atraumatic Eye: COMMON NORMALS: Equal, round and reactive pupils present and EOMs intact bilaterally PUPIL: Yes Equal, round and reactive pupils present Neck/C-Spine: COMMON NORMALS: full ROM and supple Chest: COMMONS NORMALS: normal inspection of the chest and normal palpation of entire chest wall Resp: COMMON NORMALS: normal respiratory effort, No retractions, No use of accessory muscles and clear to auscultation bilaterally AUSCULTATION: clear to auscultation bilaterally Cardio: COMMON NORMALS: regular rate, regular rhythm and No murmurs present (Cardio) RATE: regular rate RHYTHM: regular rhythm GI: COMMON NORMALS: Normal to inspection, nondistended, normoactive bowel sounds present, Soft to palpation, non-tender and no masses PALPATION: Yes Soft to palpation Extremity: COMMON NORMALS: normal to inspection and full ROM Neuro: COMMON NORMALS: patient oriented x3, moves all extremities and no focal motor deficits Psych: COMMON NORMALS: mental status grossly normal, Normal thought process present and cooperative THOUGHT PROCESS: Normal thought process present Skin: COMMON NORMALS: no rashes or lesions noted and no wounds GENERAL SKIN EXAM: no rashes or lesions noted Course 2 Vital Signs: Vital signs: Vital Signs Temperature 98.2 F 08/01/23 15:37 Pulse Rate 87 08/01/23 15:37 Respiratory Rate 16 08/01/23 15:37 Blood Pressure 128/72 08/01/23 15:37 Pulse Oximetry 98 08/01/23 15:37 Oxygen Delivery Me thod Room Air 08/01/23 15:37 MDM - Chest Pain Medical Decision Making Patient presents here with chest pains atypical in nature EKGs along with blood work here is all normal she is stable for discharge she is to follow-up with her PCP she is return if worsening she understands and agrees to plan. Medical Records I reviewed the patient's medical records. Lab Data I reviewed the patient's lab results. 08/01/23 15:48 08/01/23 15:48 Radiology Impressions Chest X-Ray 08/01/23 15:24 IMPRESSION: No acute findings. Laboratory Results WBC 6.24 10^3/uL (3.29-11.43) 08/01/23 15:48 RBC 4.13 10^6/uL (3.85-5.65) 08/01/23 15:48 Hgb 12.50 g/dL (11.27-16.99) 08/01/23 15:48 Hct 39.1 % (36-47) 08/01/23 15:48 MCV 94.7 fl (85-98) 08/01/23 15:48 MCH 30.3 pg (27-33) 08/01/23 15:48 MCHC 32.0 g/dL (30-55) 08/01/23 15:48 RDW 13.1 % (12.1-15.1) 08/01/23 15:48 Plt Count 218 10^3/cmm (157-399) 08/01/23 15:48 MPV 11.2 fL (7.4-10.4) H 08/01/23 15:48 Neut % (Auto) 64.0 % 08/01/23 15:48 Lymph % (Auto) 26.4 % 08/01/23 15:48 [place] % (Auto) 6.9 % 08/01/23 15:48 Eos % (Auto) 1.9 % 08/01/23 15:48 Baso % (Auto) 0.5 % 08/01/23 15:48 Neut # (Auto) 3.99 10^3/uL (1.8-7.7) 08/01/23 15:48 Lymph # (Auto) 1.7 10^3/uL (0.8-4.8) 08/01/23 15:48 [place] # (Auto) 0.4 10^3/uL (0.2-0.9) 08/01/23 15:48 Eos # (Auto) 0.1 10^3/uL (0.0-0.8) 08/01/23 15:48 Baso # (Auto) 0.0 10^3/uL (0.0-0.1) 08/01/23 15:48 Nucleated RBC % (auto) 0 % 08/01/23 15:48 Nucleated RBCs # 0.0 /100WBC 08/01/23 15:48 PT 13.30 SECONDS (12.1-14.9) 08/01/23 15:48 INR 0.98 (0.8-1.2) 08/01/23 15:48 Sodium 139 mmol/L (136-145) 08/01/23 15:48 Potassium 4.0 mmol/L (3.5-5.1) 08/01/23 15:48 Chloride 104 mmol/L (98-107) 08/01/23 15:48 Carbon Dioxide 21 mmol/L (22-29) L 08/01/23 15:48 Anion Gap 18.0 (5-19) 08/01/23 15:48 BUN 16 mg/dL (8-23) 08/01/23 15:48 Creatinine 1.2 mg/dL (0.5-0.9) H 08/01/23 15:48 GFR Calculation Not Reportable 08/01/23 15:48 Glucose 153 mg/dL (65-115) H 08/01/23 15:48 Calculated Osmolality 292 mOsm/kg (285-295) 08/01/23 15:48 Calcium 9.5 mg/dL (8.5-10.5) 08/01/23 15:48 Total Bilirubin 0.3 mg/dL (0.15-1.2) 08/01/23 15:48 AST 14 U/L (0-32) 08/01/23 15:48 ALT 20 U/L (0-33) 08/01/23 15:48 Alkaline Phosphatase 74 U/L (35-105) 08/01/23 15:48 Troponin T Baseline 12 ng/L (0-10) H 08/01/23 15:48 Troponin T 120 Minute 15.74 ng/L (0-10) H 08/01/23 17:55 Delta Troponin T 3.74 ABS# (0-10) 08/01/23 17:55 Total Protein 6.3 g/dL (6.6-8.7) L 08/01/23 15:48 Albumin 4.1 g/dL (3.5-5.2) 08/01/23 15:48 Globulin 2.2 g/dL (1.3-4.6) 08/01/23 15:48 Lipase 60 U/L (13-60) 08/01/23 15:48 TSH 1.81 uIU/mL (0.27-4.20) 08/01/23 15:48 All radiology interpretation(s) finalized by discharge Discharge Plan Discharge Patient Disposition: Home Clinical Impression: Chest pain Condition: Stable Prescriptions: No Action aspirin [Adult Low Dose Aspirin] 81 mg tablet,delayed release (DR/EC) 81 mg PO DAILY atorvastatin 10 mg tablet 10 mg PO DAILY omega-3 fatty acids [Fish Oil Concentrate] 1,000 mg capsule 1,000 mg PO DAILY coenzyme Q10 [Co Q-10] 100 mg capsule 100 mg PO DAILY metoprolol tartrate 25 mg tablet 25 mg PO DAILY pantoprazole 40 mg tablet,delayed release (DR/EC) 40 mg PO DAILY Zyrtec 10 mg capsule 10 mg PO DAILY Qty: 30 0RF fluticasone propionate [Flonase Allergy Relief] 50 mcg/actuation spray,suspension 1 spray intranasal BID PRN Rx Instructions: administer into each nostril Mounjaro 2.5 mg/0.5 mL pen injector SUBCUT .weekly gabapentin 300 mg capsule 300 mg PO BID Rx Instructions: 1 capsule in A.M, 2 capsules at bedtime lutein 40 mg capsule 40 mg PO DAILY Rx Instructions: administer with meals Discharge Orders: Discharge ED (Routine); Ordered 08/01/23 Ordered By: Miladys Kerns Referrals: Paulo Mckeon MD [Primary Care Provider] - 1-3 days Discharge Diet: Advance as tolerated Discharge Activity: Resume usual activity Patient Instructions: Chest Pain (ED) Coding Level of Care Code ED Sole Buffer for Georges Clements
[2023-08-01 17:18] LABS: Thyroid Stimulating Hormone 1.81 uIU/mL (0.27-4.20)
--- NOTE | 2023-08-01 17:24 | ECG_ITS ---
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 Measurements Intervals [place] Rate: 74 P: 66 MD: 151 QRS: 66 QRSD: 89 T: 47 QT: 390 QTc: 434 Interpretive Statements SINUS RHYTHM WITH SINUS ARRHYTHMIA Compared to ECG 08/01/2023 15:33:10 No significant changes Electronically Signed On 08-01-2023 19:38:46 MARITIME ENGINEER by Arin Hughes M.D. [email or web address] [id number]
[2023-08-01 18:25] LABS: Troponin 5 2HR 15.74 ng/L (0-10); Troponin 5 2HR Delta 3.74 ABS# (0-10)
== END 2023-08-01 19:19 | disposition home or self-care (01) ==
PROVIDERS: Emergency Provider Emergency Medicine; PCP Family Medicine
DX: R07.9 Chest pain, unspecified (principal); Z79.82 Long term (current) use of aspirin; E78.5 Hyperlipidemia, unspecified; Z86.73 Personal history of transient ischemic attack (TIA), and cerebral infarction without residual deficits; E11.9 Type 2 diabetes mellitus without complications
CPT/HCPCS: 36415; 71045; 80053; 83690; 84443; 84484; 85025; 85610; 93005; 99285

== ENCOUNTER 2024-09-28 10:23 | Outpatient (CLI) | payer MEDICARE, OTHER, SELFPAY ==
--- NOTE | 2024-09-28 10:25 | MM_ITS ---
WS: [id number] BILATERAL 3D TOMOSYNTHESIS DIGITAL SCREENING MAMMOGRAPHY WITH CAD CLINICAL INFORMATION: SCREENING HISTORY: Screening mammogram. No current complaints. COMPARISON: 2014 TECHNIQUE: Bilateral CC and MLO views. FINDINGS: Scattered fibroglandular densities bilaterally. No suspicious focal mass, asymmetry, calcifications, or architectural distortion. No evidence of malignancy. Incidental punctate and lucent centered calcifications. MM/MM scr tomosynthesis [id number] IMPRESSION: DENSITY: There are scattered areas of fibroglandular density. BI-RADS: 2 - Benign. FOLLOW UP: 1 Year Follow-up Recommend return to annual screening mammography.
== END 2024-09-28 10:24 | disposition home or self-care (01) ==
PROVIDERS: PCP Family Medicine; Visit Provider Family Medicine
DX: Z12.31 Encounter for screening mammogram for malignant neoplasm of breast (principal); R92.323 Mammographic fibroglandular density, bilateral breasts; R92.1 Mammographic calcification found on diagnostic imaging of breast
CPT/HCPCS: 77063; 77067

== ENCOUNTER 2025-03-27 17:23 | Emergency (ER) | payer MEDICARE, OTHER, SELFPAY ==
[2025-03-27 17:25] VITALS: BP 122/79; PULSE 79; TEMP 36.8; O2SAT 100
--- NOTE | 2025-03-27 17:26 | CTR_ITS ---
PROCEDURE INFORMATION: Exam: CT Head Without Contrast Exam date and time: 03/27/2025 6:06 PM Age: 75 years old Clinical indication: Injury or trauma; Fall; Blunt trauma (contusions or hematomas); Without loss of consciousness; Additional info: Fall, head injury TECHNIQUE: Imaging protocol: Computed tomography of the head without contrast. Radiation optimization: All CT scans at this facility use at least one of these dose optimization techniques: automated exposure control; mA and/or kV adjustment per patient size (includes targeted exams where dose is matched to clinical indication); or iterative reconstruction. COMPARISON: MR angio head wo con [id number] 02/10/2023 8:35 AM RADIATION DOSE METRICS: Total DLP (mGy-cm): 1092.5 FINDINGS: Brain: Mild chronic microvascular cerebral parenchymal change. Small slit-like remote infarct in the right frontal white matter/subinsular region approaching the right basal ganglion. No acute intracranial hemorrhage, extra-axial collection, vasogenic edema or mass effect. No midline shift. Cerebral ventricles: No ventriculomegaly. Paranasal sinuses: Visualized sinuses are unremarkable. No fluid levels. Mastoid air cells: Visualized mastoid air cells are well aerated. Bones: Unremarkable. No acute fracture. Soft tissues: Unremarkable. CT/CT head wo con* [id number] IMPRESSION: No acute intracranial or calvarial abnormality. Remote right frontal/subinsular infarct.
--- NOTE | 2025-03-27 17:27 | CTR_ITS ---
PROCEDURE INFORMATION: Exam: CT Cervical Spine Without Contrast Exam date and time: 03/27/2025 6:06 PM Age: 75 years old Clinical indication: Injury or trauma; Fall; Blunt trauma; Additional info: Fall, neck pain TECHNIQUE: Imaging protocol: Computed tomography of the cervical spine without contrast. Radiation optimization: All CT scans at this facility use at least one of these dose optimization techniques: automated exposure control; mA and/or kV adjustment per patient size (includes targeted exams where dose is matched to clinical indication); or iterative reconstruction. COMPARISON: MR angio neck w con* [id number] 02/10/2023 8:47 AM RADIATION DOSE METRICS: Total DLP (mGy-cm): 143.8 FINDINGS: Bones: Mild moderate multilevel degenerative endplate spurring and uncovertebral spurring. Mild facet arthropathy mild foraminal stenosis at C3-C4, C4-C5, C5-C6 and C6-C7. No evidence of high-grade canal stenosis on CT. No acute fracture. Lungs: Lung apices are normal. Soft tissues: Unremarkable. CT/CT cervical spin wo con* [id number] IMPRESSION: No acute fracture or traumatic malalignment.
--- NOTE | 2025-03-27 17:40 | W.ED.FALL ---
HPI - Fall General: Chief Complaint: Fall Stated Complaint: Fell hit R side of head hard Time Seen by Provider: 03/27/25 17:32 History of Present Illness: 75-year-old female with history of stroke, heart disease and hyperlipidemia who presents to the emergency room after she tripped, fell and hit her head. She says she knocked it pretty hard and felt stunned for a little while. She did not lose consciousness. No altered mental status. No nausea or vomiting. She still has some pain in her head but no obvious bruising. No neck pain. Related Data Home Medications ?Medication ?Instructions ?Recorded ?Confirmed aspirin 81 mg tablet,delayed 81 mg PO DAILY 10/09/19 03/01/23 release (Adult Low Dose Aspirin) atorvastatin 10 mg tablet 10 mg PO DAILY 10/09/19 03/01/23 coenzyme Q10 100 mg capsule (Co 100 mg PO DAILY 10/09/19 03/01/23 Q-10) omega-3 fatty acids 1,000 mg 1,000 mg PO DAILY 10/09/19 03/01/23 capsule (Fish Oil Concentrate) pantoprazole 40 mg tablet,delayed 40 mg PO DAILY 04/25/20 03/01/23 release gabapentin 300 mg capsule 300 mg PO BID 06/30/22 03/01/23 lutein 40 mg capsule 40 mg PO DAILY 06/30/22 03/01/23 fluticasone propionate 50 1 spray intranasal BID PRN 03/01/23 mcg/actuation nasal spray,suspension (Flonase Allergy Relief) metoprolol tartrate 25 mg tablet 25 mg PO DAILY 03/01/23 03/01/23 tirzepatide 2.5 mg/0.5 mL mg SUBCUT .weekly 03/01/23 03/01/23 subcutaneous pen injector (Mounjaro) Previous Rx's ?Medication ?Instructions ?Recorded cetirizine 10 mg capsule (Zyrtec) 10 mg PO DAILY #30 caps 08/26/22 Allergies Allergy/AdvReac Type Severity Reaction Status Date / Time metronidazole Allergy Unknown Unknown Verified 03/27/25 17:31 procaine (From Novocain) Allergy Unknown Unknown Verified 03/27/25 17:31 Review of Systems Narrative: Constitutional symptoms: Negative except as documented in HPI. Skin symptoms: Negative except as documented in HPI. Eye symptoms: Negative except as documented in HPI. ENMT symptoms: Negative except as documented in HPI. Respiratory symptoms: Negative except as documented in HPI. Cardiovascular symptoms: Negative except as documented in HPI. Gastrointestinal symptoms: Negative except as documented in HPI. Genitourinary symptoms: Negative except as documented in HPI. Musculoskeletal symptoms: Negative except as documented in HPI. Neurologic symptoms: Negative except as documented in HPI. Psychiatric symptoms: Negative except as documented in HPI. Endocrine symptoms: Negative except as documented in HPI. PFSH ED PFSH: Medical History (Updated 03/27/25 @ 18:34 by Aditi Saravia MD) Hyperlipidemia associated with type 2 diabetes mellitus History of CVA (cerebrovascular accident) ASHD (arteriosclerotic heart disease) Family History Other CAD (coronary artery disease) Diabetes Stroke Social History Smoking and tobacco/nicotine status: never used tobacco/nicotine Alcohol intake: never Substance/Drug Use: never Caregiver/support person: Yes Lives independently: Yes Physical Exam Narrative: EXAM NARRATIVE: General: Alert, no acute distress. Skin: Warm, dry. Head: Normocephalic, atraumatic. Neck: Supple, trachea midline. Eye: Extraocular movements are intact. Ears, nose, mouth and throat: mucosa moist. Cardiovascular: Regular, Normal peripheral perfusion. Respiratory: Lungs are clear to auscultation, respirations are non-labored, breath sounds are equal, Symmetrical chest wall expansion. Gastrointestinal: Soft, Nontender, Non distended Musculoskeletal: Normal ROM, no deformity. Neurological: Alert and oriented, No focal neurological deficit observed. Psychiatric: Cooperative, appropriate mood & affect. Course Vital Signs: Vital signs: Vital Signs Temperature 98.2 F 03/27/25 17:25 Pulse Rate 79 03/27/25 17:25 Blood Pressure 126/68 03/27/25 18:22 Pulse Oximetry 99 03/27/25 18:22 Oxygen Delivery Me thod Room Air 03/27/25 18:22 MDM - Fall Medical Decision Making Medical decision making: Differential diagnosis including but not limited to and based on the above HPI, review of systems and physical exam: patient with fall and head injury. Subdural hematoma, subarachnoid hemorrhage, concussion, skull fracture. Orders placed to evaluate differential diagnosis based on the above differential, HPI and physical exam CT scan of the head was ordered. CT head: No acute intracranial process. no intracranial hemorrhage, no evidence of infarct. no evidence of acute fracture.This was reviewed and interpreted by myself the ER physician. CT of the cervical spine: No fracture. Good alignment. No step-offs. This was reviewed and interpreted by myself the emergency room physician. I also reviewed the radiologist report. I reviewed the patient's medical record. 75-year-old female with history of stroke, heart disease and hyperlipidemia Assessment and plan: Head injury - Discharged home - Discussed plan with patient. Answered any questions. - Evaluation and treatment of this problem were appropriate in the emergency setting. Lab Data Radiology Impressions Head CT 03/27/25 17:26 IMPRESSION: No acute intracranial or calvarial abnormality. Remote right frontal/subinsular infarct. Cervical Spine CT 03/27/25 17:27 IMPRESSION: No acute fracture or traumatic malalignment. All radiology interpretation(s) finalized by discharge Discharge Plan Discharge Patient Disposition: Home Clinical Impression: Acute head injury without loss of consciousness Condition: Stable Prescriptions: No Action aspirin [Adult Low Dose Aspirin] 81 mg tablet,delayed release (DR/EC) 81 mg PO DAILY atorvastatin 10 mg tablet 10 mg PO DAILY omega-3 fatty acids [Fish Oil Concentrate] 1,000 mg capsule 1,000 mg PO DAILY coenzyme Q10 [Co Q-10] 100 mg capsule 100 mg PO DAILY metoprolol tartrate 25 mg tablet 25 mg PO DAILY pantoprazole 40 mg tablet,delayed release (DR/EC) 40 mg PO DAILY Zyrtec 10 mg capsule 10 mg PO DAILY Qty: 30 0RF fluticasone propionate [Flonase Allergy Relief] 50 mcg/actuation spray,suspension 1 spray intranasal BID PRN Rx Instructions: administer into each nostril Mounjaro 2.5 mg/0.5 mL pen injector SUBCUT .weekly gabapentin 300 mg capsule 300 mg PO BID Rx Instructions: 1 capsule in A.M, 2 capsules at bedtime lutein 40 mg capsule 40 mg PO DAILY Rx Instructions: administer with meals Discharge Orders: Discharge ED (Routine); Ordered 03/27/25 Ordered By: Aditi Saravia Referrals: Paulo Mckeon MD [Primary Care Provider, Family Practice] Discharge Diet: Usual diet Discharge Activity: Increase activity as tolerated Patient Instructions: Head Injury (ED), Opioid Safety, Pain Management, Patient Portal & Gurdeep Instructions Activity Restrictions/Additional Instructions: [facility]. You have been screened and evaluated and felt safe for discharge. Health conditions do change or evolve sometimes and as such it is important that you follow up with your Primary Doctor to be re checked, 3-5 days is a general good time frame for follow up. You are always welcome to return to the ED for re assessment if your symptoms are worsening or you have new concerns Print Language: Azeri Coding Level of Care Code ED Manager Sound for Georges Clements
[2025-03-27 17:44] VITALS: BP 131/76; O2SAT 100
[2025-03-27 18:22] VITALS: BP 126/68; O2SAT 99
[2025-03-27 18:50] VITALS: BP 132/75; PULSE 72; RESP 16; O2SAT 100
== END 2025-03-27 18:51 | disposition home or self-care (01) ==
PROVIDERS: Emergency Provider Emergency Medicine; PCP Family Medicine
DX: S09.8XXA Other specified injuries of head, initial encounter (principal); Z79.82 Long term (current) use of aspirin; E78.5 Hyperlipidemia, unspecified; Z86.73 Personal history of transient ischemic attack (TIA), and cerebral infarction without residual deficits; W01.0XXA Fall on same level from slipping, tripping and stumbling without subsequent striking against object, initial encounter
CPT/HCPCS: 70450; 72125; 99284

== ENCOUNTER 2025-06-19 18:15 | Emergency (ER) | payer MEDICARE, OTHER, SELFPAY ==
[2025-06-19 18:19] VITALS: BP 160/82; PULSE 71; RESP 18; TEMP 36.4; O2SAT 96; BMI 23.5
--- OUTSIDE RECORDS SUMMARY | 2025-06-19 18:22 | XMS_ITS | Data Portability ---
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 Plan of Treatment Reminders Order Date Submit Date Provider Last Modified By Organization Details Last Modified Time Details Appointments OFFICE VISIT 15 2025 10:00A Claudette Mckeon MD Not available Not available Not available Lab hemoglo bin A1C/hem oglobin total, QN, blood 2024 025 [facility], [address], [address], [place], [address], 12/24/2024 12:30:54 CBC 2024 025 [facility], [address], [address], [place], [address], 12/24/2024 12:19:56 CMP, serum or plasma 2024 025 [facility], [address], [address], [place], [address], 12/24/2024 12:34:27 thyrotr opin, QN, serum or plasma 2024 025 [facility], [address], [address], [place], [address], 12/24/2024 13:04:11 vitamin D, 25-hydr oxy, total, serum 2024 025 [place] [facility], [address], [facility] [address], [place], [address], 12/30/2024 20:12:28 luana sial antibod y panel, serum 2024 025 [facility], [address] [facility], [place], [address], 12/30/2024 20:12:29 unliste d lab - F. tularen sis Ab, IgM/IgG norma, S 2024 025 [facility], [address] [place], [address], 12/30/2024 20:12:25 lyme disease igg+igm , serum, reflex western blot 2024 025 [facility], [address] [facility], [place], [address], 12/30/2024 20:12:27 rosalind ia zeeshan nsis, igg+igm Ab, serum 2024 025 [facility], [address] [place], [address], 12/30/2024 20:12:31 CMP, serum or plasma 2023 024 [facility], [address], [facility] 1, [place], [address], 06/22/2024 13:18:10 hemoglo bin A1C/hem oglobin total, QN, blood 2023 024 [facility], [address], [address], [place], [address], 06/22/2024 13:26:03 urinaly sis, complet e 2023 024 [facility], [address] [facility], [address], [place], [address], 12/21/2023 13:47:12 culture , urine + sensiti vity 2023 024 [facility], [address] [facility] [address], [address], [place], [address], 12/28/2023 08:44:15 urinaly sis, complet e 2023 024 [facility] ([facility]), [address] [place], [address], 10/18/2023 17:46:49 CMP, serum or plasma 2023 024 [facility], [address], [facility] 1, [place], [address], 10/19/2023 11:22:44 lipid panel, blood 2023 024 [facility], [address] [facility], [facility] [place], [address], 10/19/2023 11:22:49 CBC 2023 024 [facility], [address], [facility] [address], [place], [address], 10/18/2023 17:03:41 HbA1c (hemogl obin A1c), blood 2023 024 [facility] ([facility]), [address] [place], [address], 10/18/2023 17:07:18 vitamin D, 25-hydr oxy, total, serum 2023 024 [facility], [address] [place] [address] [address], [address], [place], [address], 10/19/2023 11:16:57 Referral None recorde d. Procedures None recorde d. Surgeries None recorde d. Imaging None recorde d. Medication Orders flutica sone propion ate 50 mcg/act uation nasal spray,s uspensi on 2024 [facility] 15, [address], [place], [address], 12/24/2024 11:49:25 venlafa xine ER 150 mg capsule ,extend ed release 24 hr 2024 [facility] 15, [address], [place], [address], 12/24/2024 11:49:27 venlafa xine ER 75 mg capsule ,extend ed release 24 hr 2023 [facility] 15, [address], [place], [address], 04/01/2025 11:26:56 Accu- ek Malinda Plus test strips 2023 024 [facility] 15, [address], [place], [address], 06/22/2024 12:12:44 bupropi on HCl XL 150 mg 24 hr tablet, extende d release 2023 [facility] 15, [address], [place], [address], 03/09/2024 11:35:31 sertral ine 50 mg tablet 2023 024 [facility] 15, [address], [place], [address], 03/09/2024 11:35:24 Patient TargetsNo targets recorded. Patient Instructions Encounter Date Encounter Id Patient Instructions Last Modified By Organization Details Last Modified Time 10/18/2023 [id number] stroke: care instructions [email or web address] Not available 10/18/2023 16:36:45 Reason for Referral None Reported. Results Created Date Observation Date Name Description Value Unit Range Abnormal Flag Note LastModifiedBy Organization Detail LastModifiedTime 10/18/19 24 10/18/2023 CBC WBC 5.4 x10 4.0-10 .5 Not Available [facility] [place] [facility] [address], [place], [address], 10/18/2023 17:03:41 10/18/19 24 10/18/2023 CBC RBC 4.22 x10 3.50-5 .50 Not Available [facility] [place] [facility] [address], [place], [address], 10/18/2023 17:03:41 10/18/19 24 10/18/2023 CBC HGB 13.3 g/dL 12.0-1 6.0 Not Available [facility] [place] [facility] [address], [place], [address], 10/18/2023 17:03:41 10/18/19 24 10/18/2023 CBC HCT 38.4 % 37.0-4 7.0 Not Available [facility] [place] [facility] [address], [place], [address], 10/18/2023 17:03:41 10/18/19 24 10/18/2023 CBC MCV 90.9 fL 80.0-9 9.9 Not Available [facility] [place] [facility] [address], [place], [address], 10/18/2023 17:03:41 10/18/19 24 10/18/2023 CBC MCH 31.5 pg 27.0-3 2.0 Not Available [facility] [place] [facility] [address], [place], [address], 10/18/2023 17:03:41 10/18/19 24 10/18/2023 CBC MCHC 34.6 g/dL 32.0-3 6.0 Not Available [facility] [place] [facility] [address] [facility] 1, [place], [address], 10/18/2023 17:03:41 10/18/19 24 10/18/2023 CBC RDW 13.5 % 11.5-1 4.5 Not Available [facility] [place] [facility] [address] [facility] 1, [place], [address], 10/18/2023 17:03:41 10/18/19 24 10/18/2023 CBC plt 200.5 x10 140.0- 451.0 Not Available [facility] [place] [facility] [address] [facility] 1, [place], [address], 10/18/2023 17:03:41 10/18/19 24 10/18/2023 CBC lymphocytes % 27.5 % 20.0-5 0.0 Not Available [facility] [place] [facility] [address] [facility] 1, [place], [address], 10/18/2023 17:03:41 10/18/19 24 10/18/2023 CBC granulcytes % 61.1 % 30.0-7 0.0 Not Available [facility] [place] [facility] [address] [facility] 1, [place], [address], 10/18/2023 17:03:41 10/18/19 24 10/18/2023 CBC monocytes % 7.3 % 2.0-10 .0 Not Available [facility] [place] [facility] [address] [place] [address] [facility] 1, [place], [address], 10/18/2023 17:03:41 10/18/19 24 10/18/2023 CBC granulcytes# 3.3 x10 Not Fannie ilable [facility] [place] [facility] [address] [facility] 1, [place], [address], 10/18/2023 17:03:41 10/18/19 24 10/18/2023 CBC lymphocytes # 1.5 x10 Not Available [facility] [address] [facility] [address], [place], [address], 10/18/2023 17:03:41 10/18/19 24 10/18/2023 CBC monocytes # 0.4 x10 Not Avai lable [facility] [address] [facility] [address], [place], [address], 10/18/2023 17:03:41 10/18/19 24 10/19/2023 VITAM IN D,25- OH,TO FROILAN,I A vitamin D,25-oh,tota l,ia 25 NG/mL 30-100 low Vitam in D Statu s 25-OH Vitam in D: Defic iency : <20 ng/mL Insuf ficie ncy: 20 - 29 ng/mL Optim al: > or = 30 ng/mL For 25-OH Vitam in D testi ng on patie nts on D2-maria pplem entat ion and patie nts for whom quant itati on of D2 and D3 fract ions is requi red, the [employer] eD(TM ) 25-OH VIT D, (D2,D 3), LC/MS /MS is recom gabriel d: order code 20375 (fabiola ents >2yrs ). See Note 1 Note 1 For addit ional infor alice corral refer to http: //kary dasilva.Que stDia gnost ics.c om/fa q/FAQ 199 (This link is being provi ded for infor troy israel/ americo lopez purpo ses only. ) Not Available [facility] [address], [place], [address], 10/19/2023 11:16:57 10/18/19 24 10/19/2023 CMP (FEMA LE) glucose 90.0 mg/dL 60.0-9 9.0 Not Available [facility] [address] [facility] 1, [place], [address], 10/19/2023 11:22:44 10/18/19 24 10/19/2023 CMP (FEMA LE) BUN (blood urea nitrogen) 13.0 mg/dL 10.0-2 6.0 Not Available [facility] [address] [address], [place], [address], 10/19/2023 11:22:44 10/18/19 24 10/19/2023 CMP (FEMA LE) creatinine (serum) 0.7 mg/dL 0.4-1. 5 Not Available [facility] [address] [address], [place], [address], 10/19/2023 11:22:44 10/18/19 24 10/19/2023 CMP (FEMA LE) BUN/creatini ne ratio 18.31 ratio Not Available [facility] [address] [address], [place], [address], 10/19/2023 11:22:44 10/18/19 24 10/19/2023 CMP (FEMA LE) eGFR calculated 85.8 Not Available [facility] [address] [address], [place], [address], 10/19/2023 11:22:44 10/18/19 24 10/19/2023 CMP (FEMA LE) total protein 7.0 g/dL 6.0-8. 5 Not Available [facility] [address] [address], [place], [address], 10/19/2023 11:22:44 10/18/19 24 10/19/2023 CMP (FEMA LE) total bilirubin 0.7 mg/dL 0.2-1. 3 Not Available [facility] [address] [address], [place], [address], 10/19/2023 11:22:44 10/18/19 24 10/19/2023 CMP (FEMA LE) albumin 4.3 g/dL 3.5-5. 5 Not Available [facility] [place] [facility] [address] [place] [address] [facility] 1, [place], [address], 10/19/2023 11:22:44 10/18/19 24 10/19/2023 CMP (FEMA LE) globulin 2.7 calc Not Available [facility] [address] [facility] 1, [place], [address], 10/19/2023 11:22:44 10/18/19 24 10/19/2023 CMP (FEMA LE) AST (SGOT) 24.0 U/L 0.0-46 .0 Not Available [facility] [place] [facility] [address] [facility] 1, [place], [address], 10/19/2023 11:22:44 10/18/19 24 10/19/2023 CMP (FEMA LE) altv (SGPT) 24.0 U/L 13.0-6 9.0 normal Not Available [facility] [place] [facility] [address] [facility] 1, [place], [address], 10/19/2023 11:22:44 10/18/19 24 10/19/2023 CMP (FEMA LE) A/G ratio 1.6 ratio Not Available [facility] [address] [facility] 1, [place], [address], 10/19/2023 11:22:44 10/18/19 24 10/19/2023 CMP (FEMA LE) ALP phos 79.0 U/L 30.0-1 40.0 normal Not Available [facility] [place] [facility] [address] [facility] 1, [place], [address], 10/19/2023 11:22:44 04/16/20 24 10/19/2023 CMP (FEMA LE) calcium 9.4 mg/dL 8.4-10 .5 Not Available [facility] [place] [facility] [address] [facility] 1, [place], [address], 10/19/2023 11:22:44 10/18/19 24 10/19/2023 CMP (FEMA LE) sodium 144.0 mmol/ L 136.0- 145.0 Not Available [facility] [place] [facility] [address] [facility] 1, [place], [address], 10/19/2023 11:22:44 10/18/19 24 10/19/2023 CMP (FEMA LE) potassium 4.0 mmol/ L 3.5-5. 1 Not Available [facility] [place] [facility] [address] [facility] [address], [place], [address], 10/19/2023 11:22:44 10/18/19 24 10/19/2023 CMP (FEMA LE) chloride 111.0 mmol/ L 98.0-1 10.0 abnormal Not Available [facility] [place] [facility] [address] [facility] 1, [place], [address], 10/19/2023 11:22:44 10/18/19 24 10/19/2023 CMP (FEMA LE) C02 27.0 mmol/ L 22.0-3 1.0 Not Available [facility] [place] [facility] [address] [facility] 1, [place], [address], 10/19/2023 11:22:44 10/18/19 24 10/19/2023 CMP (FEMA LE) anion gap 6.0 calc Not Available [facility] [address] [facility] [address], [place], [address], 10/19/2023 11:22:44 10/18/19 24 10/19/2023 CMP (FEMA LE) osmolality 296.8 calc Not Available [facility] [place] [facility] [address] [address], [place], [address], 10/19/2023 11:22:44 10/18/19 24 10/19/2023 LIPID PROFI LE (FEMA LE) cholesterol 181.0 mg/dL 0.0-20 0.0 Not Available [facility] [address] [address], [place], [address], 10/19/2023 11:22:49 10/18/19 24 10/19/2023 LIPID PROFI LE (FEMA LE) trig 88.0 mg/dL 0.0-15 0.0 Not Available [facility] [address] [address], [place], [address], 10/19/2023 11:22:49 10/18/19 24 10/19/2023 LIPID PROFI LE (FEMA LE) HDL - direct 67.0 mg/dL >40.0 Not Available [facility] [address] [address], [place], [address], 10/19/2023 11:22:49 10/18/19 24 10/19/2023 LIPID PROFI LE (FEMA LE) VLDL - direct 17.6 mg/dL Not Available [facility] [address] [place] [address], [address], 10/19/2023 11:22:49 10/18/19 24 10/19/2023 LIPID PROFI LE (FEMA LE) LDL - direct 96.4 mg/dL 0.0-13 0.0 Not Available [facility] [address], [address], 10/19/2023 11:22:49 10/18/19 24 10/18/2023 urina lysis , compl ete color yellow Not Available [facility] ([facility]) [address] [place], [address], 10/18/2023 16:34:09 10/18/19 24 10/18/2023 urina lysis , compl ete clarity clear clear Not Available [facility] ([facility]) [address] [place], [address], 10/18/2023 16:34:09 10/18/19 24 10/18/2023 urina lysis , compl ete glucose negati ve negati ve Not Available [facility] ([facility]) [address] [place], [address], 10/18/2023 16:34:09 10/18/19 24 10/18/2023 urina lysis , compl ete bilirubin negati ve negati ve Not Available [facility] ([facility]) [address] [place], [address], 10/18/2023 16:34:09 10/18/19 24 10/18/2023 urina lysis , compl ete ketones negati ve negati ve Not Available [facility] ([facility]) [address] [place], [address], 10/18/2023 16:34:09 10/18/19 24 10/18/2023 urina lysis , compl ete specific gravity 1.020 1.005- 1.025 Not Available [facility] ([facility]) [address] [place], [address], 10/18/2023 16:34:09 10/18/19 24 10/18/2023 urina lysis , compl ete pH 5.5 5.0-7. 0 Not Available [facility] ([facility]) [address] [place], [address], 10/18/2023 16:34:09 10/18/19 24 10/18/2023 urina lysis , compl ete protein negati ve Not Available [facility] ([facility]) [address] [place], [address], 10/18/2023 16:34:09 10/18/19 24 10/18/2023 urina lysis , compl ete uro 0.2 Not Available [facility] ([facility]) [address] [place], [address], 10/18/2023 16:34:09 10/18/19 24 10/18/2023 urina lysis , compl ete nitrate negati ve negati ve Not Available [facility] ([facility]) [address] [place], [address], 10/18/2023 16:34:09 10/18/19 24 10/18/2023 urina lysis , compl ete blood negati ve negati ve Not Available [facility] ([facility]) [address] [place], [address], 10/18/2023 16:34:09 10/18/19 24 10/18/2023 urina lysis , compl ete leukocytes 2+ negati ve abnormal Not Available [facility] ([facility]) [address] [place], [address], 10/18/2023 16:34:09 10/18/19 24 10/18/2023 urina lysis , compl ete WBC 25-30 0 abnormal Not Available [facility] ([facility]) [address] [place], [address], 10/18/2023 16:34:09 10/18/19 24 10/18/2023 urina lysis , compl ete RBC negati ve 0 Not Available [facility] ([facility]) [address] [place], [address], 10/18/2023 16:34:09 10/18/19 24 10/18/2023 urina lysis , compl ete epi cells 6-8 0 abnormal Not Available [facility] ([facility]) [address] [place], [address], 10/18/2023 16:34:09 10/18/19 24 10/18/2023 urina lysis , compl ete bacteria 1+ of mixed jesus abnormal Not Available [facility] ([facility]) [address] [place], [address], 10/18/2023 16:34:09 10/18/19 24 10/18/2023 urina lysis , compl ete other negati ve Not Available [facility] ([facility]) [address] [place], [address], 10/18/2023 16:34:09 10/18/19 24 10/18/2023 HbA1c (hemo globi n A1c), blood HbA1c 5.8 Not Available [facility] ([facility]) [address] [place], [address], 10/18/2023 16:34:56 10/19/19 24 10/21/2023 CULTU RE, URINE , ROUTI NE culture, urine, routine SEE NOTE abnormal CULTU RE, URINE , ROUTI NE Micro Numbe r: [id number] Test Statu s: Final Speci men Sourc e: Urine Speci men Quali ty: Adequ ate Resul t: Great er than 100,0 00 CFU/m L of Esche jany a coli E.col i ----- ----- ----- - INT WILEY AMOX/ CLAVU LANAT E S 4 AMP/S ULBAC PASTOR I 16 CEFAZ EMERY NR <=4 2 CEFEP ELKE S <=0.1 2 CEFTA ZIDIM E S <=1 CEFTR IAXON E S <=0.2 5 CIPRO FLOXA JARED S <=0.0 6 GENTA MICIN S <=1 IMIPE NEM S <=0.2 5 LEVOF LOXAC IN S <=0.1 2 MEROP ENEM S <=0.2 5 NITRO FURAN TOIN S <=16 PIP/T AZOBA CTAM S <=4 TRIME THOPR IM/MARIA LFA S <=20 S=Jordyn cepti ble I=Int ermed iate R=Res istan t * = Not Teste d NR = Not Repor renato NN = See Thera py Comme nts THERA PY COMME NTS Note 1: For infec tions other than uncom plica renato UTI cause d by E. coli, K. pneum oniae or P. mirab ilis: Cefaz emery is resis tant if WILEY > or = 8 mcg/m L. (Dist ingui shing susce ptibl e versu s inter media te for isola deidra with WILEY < or = 4 mcg/m L requi res addit ional testi ng.) Note 2: For uncom plica renato UTI cause d by E. coli, K. pneum oniae or P. mirab ilis: Cefaz emery is susce ptibl e if WILEY <32 mcg/m L and predi cts susce ptibl e to the oral agent s cefac saranya, cefdi shereen, cefpo doxim e, cefpr ozil, cefur oxime , cepha lexin and lorac arbef . Not Available [facility] [address] [place], [address], 10/21/2023 17:35:46 12/21/19 24 12/21/2023 URINA LYSIS WITH MICRO color YELLOW Not Available [facility] [address] [facility] 1, [place], [address], 12/21/2023 13:47:12 12/21/19 24 12/21/2023 URINA LYSIS WITH MICRO clarity SLIGHT Y CLOUDY Not Available [facility] [address] [facility] 1, [place], [address], 12/21/2023 13:47:12 12/21/19 24 12/21/2023 URINA LYSIS WITH MICRO glu NEGATI VE Not Available [facility] [address] [facility] [address], [place], [address], 12/21/2023 13:47:12 12/21/19 24 12/21/2023 URINA LYSIS WITH MICRO bili NEGATI VE Not Available [facility] [address], [place], [address], 12/21/2023 13:47:12 12/21/19 24 12/21/2023 URINA LYSIS WITH MICRO ket NEGATI VE Not Available [facility] [address], [place], [address], 12/21/2023 13:47:12 12/21/19 24 12/21/2023 URINA LYSIS WITH MICRO S.g 1.015 1.005- 1.025 Not Available [facility] [place] [facility] [address], [place], [address], 12/21/2023 13:47:12 12/21/19 24 12/21/2023 URINA LYSIS WITH MICRO pH 5.0 5.0-7. 0 Not Available [facility] [place] [facility] [address], [place], [address], 12/21/2023 13:47:12 12/21/19 24 12/21/2023 URINA LYSIS WITH MICRO pro NEGATI VE Not Available [facility] [address], [place], [address], 12/21/2023 13:47:12 12/21/19 24 12/21/2023 URINA LYSIS WITH MICRO uro 0.2 Not Available [facility] [address], [place], [address], 12/21/2023 13:47:12 12/21/19 24 12/21/2023 URINA LYSIS WITH MICRO nit POSITI VE high Not Available [facility] [address], [place], [address], 12/21/2023 13:47:12 12/21/19 24 12/21/2023 URINA LYSIS WITH MICRO blo NEGATI VE Not Available [facility] [address], [place], [address], 12/21/2023 13:47:12 12/21/19 24 12/21/2023 URINA LYSIS WITH MICRO tracy 2+ high Not Available [facility] [address], [place], [address], 12/21/2023 13:47:12 12/21/19 24 12/21/2023 URINA LYSIS WITH MICRO WBC 15-20 abnormal Not Available [facility] [address] [facility] 1, [place], [address], 12/21/2023 13:47:12 12/21/19 24 12/21/2023 URINA LYSIS WITH MICRO RBC NEGATI VE Not Available [facility] [address], [place], [address], 12/21/2023 13:47:12 12/21/19 24 12/21/2023 URINA LYSIS WITH MICRO epi cells NEGATI VE Not Available [facility] [address] [facility] 1, [place], [address], 12/21/2023 13:47:12 12/21/19 24 12/21/2023 URINA LYSIS WITH MICRO bacteria 2+ MIXED JESUS abnormal Not Available [facility] [address] [facility] 1, [place], [address], 12/21/2023 13:47:12 12/21/19 24 12/21/2023 URINA LYSIS WITH MICRO other NEGATI VE Not Available [facility] [address] [facility] 1, [place], [address], 12/21/2023 13:47:12 12/21/19 24 12/23/2023 CULTU RE, URINE , ROUTI NE culture, urine, routine SEE NOTE abnormal CULTU RE, URINE , ROUTI NE Micro Numbe r: [id number] Test Statu s: Final Speci men Sourc e: Urine Speci men Quali ty: Adequ ate Resul t: Great er than 100,0 00 CFU/m L of Esche jany a coli E.col i ----- ----- ----- - INT WILEY AMOX/ CLAVU LANAT E S 4 AMP/S ULBAC PASTOR I 16 CEFAZ EMERY NR <=4 2 CEFEP ELKE S <=0.1 2 CEFTA ZIDIM E S <=1 CEFTR IAXON E S <=0.2 5 CIPRO FLOXA JARED S <=0.0 6 GENTA MICIN S <=1 IMIPE NEM S <=0.2 5 LEVOF LOXAC IN S <=0.1 2 MEROP ENEM S <=0.2 5 NITRO FURAN TOIN S <=16 PIP/T AZOBA CTAM S <=4 TRIME THOPR IM/MARIA LFA S <=20 S=Jordyn cepti ble I=Int ermed iate R=Res istan t * = Not Teste d NR = Not Repor renato NN = See Thera py Comme nts THERA PY COMME NTS Note 1: For infec tions other than uncom plica renato UTI cause d by E. coli, K. pneum oniae or P. mirab ilis: Cefaz emery is resis tant if WILEY > or = 8 mcg/m L. (Dist ingui shing susce ptibl e versu s inter media te for isola deidra with WILEY < or = 4 mcg/m L requi res addit ional testi ng.) Note 2: For uncom plica renato UTI cause d by E. coli, K. pneum oniae or P. mirab ilis: Cefaz emery is susce ptibl e if WILEY <32 mcg/m L and predi cts susce ptibl e to the oral agent s cefac saranya, cefdi shereen, cefpo doxim e, cefpr ozil, cefur oxime , cepha lexin and lorac arbef . Not Available [facility] [address] [place], [address], 12/23/2023 19:19:57 06/22/20 24 06/22/2024 CMP (FEMA LE) glucose 97.0 mg/dL 60.0-9 9.0 Not Available [facility] [place] [facility] [address] [facility] [address], [place], [address], 06/22/2024 13:18:10 06/22/20 24 06/22/2024 CMP (FEMA LE) BUN (blood urea nitrogen) 12.0 mg/dL 10.0-2 6.0 Not Available [facility] [address] [facility] [address], [place], [address], 06/22/2024 13:18:10 06/22/20 24 06/22/2024 CMP (FEMA LE) creatinine (serum) 0.8 mg/dL 0.4-1. 5 Not Available [facility] [address] [facility] [address], [place], [address], 06/22/2024 13:18:10 06/22/20 24 06/22/2024 CMP (FEMA LE) BUN/creatini ne ratio 15.00 ratio Not Available [address], [place], [address], 06/22/2024 13:18:10 06/22/20 24 06/22/2024 CMP (FEMA LE) eGFR calculated 74.5 Not Available [facility] [address] [facility] 1, [place], [address], 06/22/2024 13:18:10 06/22/20 24 06/22/2024 CMP (FEMA LE) total protein 7.3 g/dL 6.0-8. 5 Not Available [facility] [place] [address] [place] [facility] [place], [address], 06/22/2024 13:18:10 06/22/20 24 06/22/2024 CMP (FEMA LE) total bilirubin 0.9 mg/dL 0.2-1. 3 Not Available [facility] [place] [facility] [place] [address] [facility] 1, [place], [address], 06/22/2024 13:18:10 06/22/20 24 06/22/2024 CMP (FEMA LE) albumin 4.5 g/dL 3.5-5. 5 Not Available [facility] [place] [facility] [place] [address] [facility] 1, [place], [address], 06/22/2024 13:18:10 06/22/20 24 06/22/2024 CMP (FEMA LE) globulin 2.8 calc Not Available [facility] [address] [facility] 1, [place], [address], 06/22/2024 13:18:10 06/22/20 24 06/22/2024 CMP (FEMA LE) AST (SGOT) 22.0 U/L 0.0-46 .0 Not Available [facility] [place] [place] [address] [facility] 1, [place], [address], 06/22/2024 13:18:10 06/22/20 24 06/22/2024 CMP (FEMA LE) altv (SGPT) 27.0 U/L 13.0-6 9.0 normal Not Available [facility] [place] [place] [address] [facility] 1, [place], [address], 06/22/2024 13:18:10 06/22/20 24 06/22/2024 CMP (FEMA LE) A/G ratio 1.6 ratio Not Available [facility] [address] [facility] 1, [place], [address], 06/22/2024 13:18:10 06/22/20 24 06/22/2024 CMP (FEMA LE) ALP phos 76.0 U/L 30.0-1 40.0 normal Not Available [facility] [place] [place] [address] [facility] 1, [place], [address], 06/22/2024 13:18:10 06/22/20 24 06/22/2024 CMP (FEMA LE) calcium 9.4 mg/dL 8.4-10 .5 Not Available [facility] [place] [facility] [place] [address] [facility] 1, [place], [address], 06/22/2024 13:18:10 06/22/20 24 06/22/2024 CMP (FEMA LE) sodium 140.0 mmol/ L 136.0- 145.0 Not Available [facility] [place] [address] [facility] 1, [place], [address], 06/22/2024 13:18:10 06/22/20 24 06/22/2024 CMP (FEMA LE) potassium 4.4 mmol/ L 3.5-5. 1 Not Available [facility] [facility] [place] [address] [facility] 1, [place], [address], 06/22/2024 13:18:10 06/22/20 24 06/22/2024 CMP (FEMA LE) chloride 107.0 mmol/ L 98.0-1 10.0 normal Not Available [facility] [address] [facility] 1, [place], [address], 06/22/2024 13:18:10 06/22/20 24 06/22/2024 CMP (FEMA LE) C02 28.0 mmol/ L 22.0-3 1.0 Not Available [facility] [address] [facility] 1, [place], [address], 06/22/2024 13:18:10 06/22/20 24 06/22/2024 CMP (FEMA LE) anion gap 5.0 calc Not Available [facility] [address] [facility] 1, [place], [address], 06/22/2024 13:18:10 06/22/20 24 06/22/2024 CMP (FEMA LE) osmolality 288.9 calc Not Available [facility] [place] [facility] [address] [facility] 1, [place], [address], 06/22/2024 13:18:10 06/22/20 24 06/22/2024 HBA1C hemaglobin A1C 5.9 4.2-6. 5 Not Available [facility] [place] [address] [facility] 1, [place], [address], 06/22/2024 13:26:03 12/25/19 25 12/24/2024 CBC WBC 3.9 x10 4.0-10 .5 low Not Available [facility] [place] [address] [facility] 1, [place], [address], 12/24/2024 12:19:56 12/25/19 25 12/24/2024 CBC RBC 4.32 x10 3.50-5 .50 Not Available [facility] [place] [facility] [place] [address] [facility] 1, [place], [address], 12/24/2024 12:19:56 12/25/19 25 12/24/2024 CBC HGB 13.2 g/dL 12.0-1 6.0 Not Available [facility] [place] [address] [facility] 1, [place], [address], 12/24/2024 12:19:56 12/25/19 25 12/24/2024 CBC HCT 40.0 % 37.0-4 7.0 Not Available [facility] [place] [address] [facility] 1, [place], [address], 12/24/2024 12:19:56 12/25/19 25 12/24/2024 CBC MCV 92.7 fL 80.0-9 9.9 Not Available [facility] [place] [address] [facility] 1, [place], [address], 12/24/2024 12:19:56 12/25/19 25 12/24/2024 CBC MCH 30.4 pg 27.0-3 2.0 Not Available [facility] [place] [address] [facility] 1, [place], [address], 12/24/2024 12:19:56 12/25/19 25 12/24/2024 CBC MCHC 32.9 g/dL 32.0-3 6.0 Not Available [facility] [place] [place] [address] [facility] 1, [place], [address], 12/24/2024 12:19:56 12/25/19 25 12/24/2024 CBC RDW 14.1 % 11.5-1 4.5 Not Available [facility] [place] [facility] [place] [address] [facility] 1, [place], [address], 12/24/2024 12:19:56 12/25/19 25 12/24/2024 CBC plt 188.4 x10 140.0- 451.0 Not Available [facility] [place] [address] [facility] 1, [place], [address], 12/24/2024 12:19:56 12/25/19 25 12/24/2024 CBC lymphocytes % 30.4 % 20.0-5 0.0 Not Available [facility] [place] [address] [facility] 1, [place], [address], 12/24/2024 12:19:56 12/25/19 25 12/24/2024 CBC granulcytes % 50.0 % 30.0-7 0.0 Not Available [facility] [place] [address] [facility] 1, [place], [address], 12/24/2024 12:19:56 12/25/19 25 12/24/2024 CBC monocytes % 13.1 % 2.0-16 .0 Not Available [facility] [address] [facility] 1, [place], [address], 12/24/2024 12:19:56 12/25/19 25 12/24/2024 CBC granulcytes# 1.9 x10 Not Fannie ilable [facility] [address] [place] [address] [facility] 1, [place], [address], 12/24/2024 12:19:56 12/25/19 25 12/24/2024 CBC lymphocytes # 1.2 x10 Not Available [facility] [address] [place] [address] [address], [place], [address], 12/24/2024 12:19:56 12/25/19 25 12/24/2024 CBC monocytes # 0.5 x10 Not Avai lable [facility] [address] [place] [facility], [place], [address], 12/24/2024 12:19:56 12/25/19 25 12/24/2024 HBA1C hemaglobin A1C 5.3 4.2-6. 5 normal Not Available [facility] [address] [facility], [place], [address], 12/24/2024 12:30:54 12/25/19 25 12/24/2024 CMP (FEMA LE) glucose 105.0 mg/dL 60.0-9 9.0 high Not Available [facility] [address] [facility], [place], [address], 12/24/2024 12:34:26 12/25/19 25 12/24/2024 CMP (FEMA LE) BUN (blood urea nitrogen) 10.0 mg/dL 10.0-2 6.0 Not Available [facility] [address] [facility] 1, [place], [address], 12/24/2024 12:34:26 12/25/19 25 12/24/2024 CMP (FEMA LE) creatinine (serum) 0.7 mg/dL 0.4-1. 5 Not Available [facility] [address] [facility], [place], [address], 12/24/2024 12:34:26 12/25/19 25 12/24/2024 CMP (FEMA LE) BUN/creatini ne ratio 14.29 ratio Not Available [facility] [address] [facility], [place], [address], 12/24/2024 12:34:26 12/25/19 25 12/24/2024 CMP (FEMA LE) eGFR calculated 86.9 Not Available [facility] [address] [facility], [place], [address], 12/24/2024 12:34:26 12/25/19 25 12/24/2024 CMP (FEMA LE) total protein 7.3 g/dL 6.0-8. 5 Not Available [facility] [address] [facility], [place], [address], 12/24/2024 12:34:26 12/25/19 25 12/24/2024 CMP (FEMA LE) total bilirubin 0.9 mg/dL 0.2-1. 3 Not Available [facility] [address] [facility], [place], [address], 12/24/2024 12:34:26 12/25/19 25 12/24/2024 CMP (FEMA LE) albumin 4.4 g/dL 3.5-5. 5 Not Available [facility] [address] [facility], [place], [address], 12/24/2024 12:34:26 12/25/19 25 12/24/2024 CMP (FEMA LE) globulin 2.9 calc Not Available [facility] [address] [place] [address] [facility] 1, [place], [address], 12/24/2024 12:34:26 12/25/19 25 12/24/2024 CMP (FEMA LE) AST (SGOT) 33.0 U/L 0.0-46 .0 Not Available [facility] [address] [place] [facility], [place], [address], 12/24/2024 12:34:26 12/25/19 25 12/24/2024 CMP (FEMA LE) altv (SGPT) 37.0 U/L 13.0-6 9.0 normal Not Available [facility] [address] [facility] 1, [place], [address], 12/24/2024 12:34:26 12/25/19 25 12/24/2024 CMP (FEMA LE) A/G ratio 1.5 ratio Not Available [facility] [address] [place] [facility], [place], [address], 12/24/2024 12:34:26 12/25/19 25 12/24/2024 CMP (FEMA LE) ALP phos 82.0 U/L 30.0-1 40.0 normal Not Available [facility] [address] [facility] 1, [place], [address], 12/24/2024 12:34:26 12/25/19 25 12/24/2024 CMP (FEMA LE) calcium 9.6 mg/dL 8.4-10 .5 Not Available [facility] [address] [facility], [place], [address], 12/24/2024 12:34:26 12/25/19 25 12/24/2024 CMP (FEMA LE) sodium 139.0 mmol/ L 136.0- 145.0 Not Available [facility] [place] [facility] [place] [facility] [address] [place] [facility], [place], [address], 12/24/2024 12:34:26 12/25/19 25 12/24/2024 CMP (FEMA LE) potassium 4.1 mmol/ L 3.5-5. 1 Not Available [facility] [place] [facility] [address] [facility] 1, [place], [address], 12/24/2024 12:34:26 12/25/19 25 12/24/2024 CMP (FEMA LE) chloride 106.0 mmol/ L 98.0-1 10.0 normal Not Available [facility] [place] [facility] [address] [facility] 1, [place], [address], 12/24/2024 12:34:26 12/25/19 25 12/24/2024 CMP (FEMA LE) C02 26.0 mmol/ L 22.0-3 1.0 Not Available [facility] [place] [facility] [address] [facility] 1, [place], [address], 12/24/2024 12:34:26 12/25/19 25 12/24/2024 CMP (FEMA LE) anion gap 7.0 calc Not Available [facility] [address] [facility] 1, [place], [address], 12/24/2024 12:34:26 12/25/19 25 12/24/2024 CMP (FEMA LE) osmolality 286.6 calc Not Available [facility] [place] [facility] [place] [facility] [address] [facility] 1, [place], [address], 12/24/2024 12:34:26 12/25/19 25 12/24/2024 TSH TSH 0.92 uIU/m L 0.49-3 .82 Not Available [facility] [place] [facility] [place] [facility] [address] [facility] 1, [place], [address], 12/24/2024 13:04:11 12/25/19 25 12/30/2024 F. TULAR ENSIS AB, IGM/I GG NORMA , S F. tularensis Ab, IgM norma, S NEGATI VE negati ve Not Available [facility] [place] [address] [place], [address], 12/30/2024 20:12:25 12/25/19 25 12/30/2024 F. TULAR ENSIS AB, IGM/I GG NORMA , S F. tularensis Ab, IgG norma, S NEGATI VE negati ve Not Available [facility] [address] [place], [address], 12/30/2024 20:12:25 12/25/19 25 12/30/2024 F. TULAR ENSIS AB, IGM/I GG NORMA , S F. tularensis interpretati on No antib odies to Hiro nunez tular ensis detec renato. Antib john respo nse may be negat ivone in sampl es colle cted too soon follo wing infec tion/ expos ure. Repea t testi ng on a new sampl e in 1-2 weeks if clini alli indic ated. Not Available [address], [address], 12/30/2024 20:12:25 12/25/19 25 12/30/2024 LYME DISEA SE AB W/REF L TO BLOT (IGG, IGM) lyme Ab screen <0.90 index normal Index Inter preta tion ----- ----- ----- ---- < 0.90 Negat ivone 0.90- 1.09 Equiv ocal > 1.09 Posit ivone As recom gabriel d by the Food and Drug Admin istra tion (FDA) , all sampl es with posit ivone or equiv ocal resul ts in a Borre sukhdev burgd orfer i antib john scree n will be teste d using a blot metho d. Posit ivone or equiv ocal scree samm test resul ts shoul d not be inter prete d as truly posit ivone until verif ied as such using a suppl ement al assay (e.g. , B. burgd orfer i blot) . The scree samm test and/o r blot for B. burgd orfer i antib odies may be false ly negat ivone in early stage s of Lyme disea se, inclu ding the perio d when eryth arely migra ns is appar ent. Not Available [address], [address], 12/30/2024 20:12:27 12/25/1912/30/2024 VITAM IN D,25- OH,TO FROILAN,I A vitamin D,25-oh,tota l,ia 41 NG/mL 30-100 normal Vitam in D Statu s 25-OH Vitam in D: Defic iency : <20 ng/mL Insuf ficie ncy: 20 - 29 ng/mL Optim al: > or = 30 ng/mL For 25-OH Vitam in D testi ng on patie nts on D2-maria pplem entat ion and patie nts for whom quant itati on of D2 and D3 fract ions is requi red, the [facility] e[facility](TM ) 25-OH VIT D, (D2,D 3), LC/MS /MS is recom gabriel d: order code 22951 (fabiola ents >2yrs ). See Note 1 Note 1 For addit ional infor alice corral refer to http: //kary Barger stDia gnost ics.c om/fa q/FAQ 199 (This link is being provi ded for infor troy israel/ americo lopez purpo ses only. ) Not Available [facility] [address], [address], 12/30/2024 20:12:28 12/25/1912/30/2024 RICKE TTSIA (RMSF ) IGG,I GM W/REF L TO TITER S rmsf IgG NOT DETECT ED normal Not Available [facility] [place] [address] [place], [address], 12/30/2024 20:12:29 12/25/19 25 12/30/2024 RICKE TTSIA (RMSF ) IGG,I GM W/REF L TO TITER S rmsf IgM NOT DETECT ED normal REFER ENCE RANGE : NOT DETEC RENATO Not Available [address], [address], 12/30/2024 20:12:29 12/25/19 25 12/30/2024 EHRLI ELSA CHAFF EENSI S (IGG, IGM) E. chaffeensis Ab IgG <1:64 normal Not Available [address], [address], 12/30/2024 20:12:31 12/25/19 25 12/30/2024 EHRLI ELSA CHAFF EENSI S (IGG, IGM) E. chaffeensis Ab IgM <1:20 normal Not Available [address], [address], 12/30/2024 20:12:31 12/25/19 25 12/30/2024 EHRLI ELSA CHAFF EENSI S (IGG, IGM) interpretati on normal ANTIB JOHN NOT DETEC RENATO REFER ENCE RANGE : IgG <1:64 IgM <1:20 Ehrli elsa chaff eensi s has been ident ified as the causa tive agent of Human Monoc ytic Ehrli chios is (HME) . Infec renato indiv idual s produ ce speci fic antib odies to E. chaff eensi s that can be detec renato by an immun ofluo resce nt antib john (IFA) test. Singl e IgG IFA titer s of 1:64 or great er indic ate expos ure to E. chaff eensi s. A four- fold rise in IgG titer s betwe en acute and conva lesce nt sampl es and/o r the prese nce of IgM antib john again st E. chaff eensi s sugge st recen t or curre nt infec tion. This test was devel oped and its rei tical perfo rmanc e destiney cteri stics have been deter mined by [facility]. It has not been clear ed or appro dionne by FDA. This assay has been valid ated pursu ant to the CLIA regul ation s and is used for clini qi purpo ses. Not Available [facility] [address], [place], [address], 12/30/2024 20:12:31 01/19/20 25 01/18/2025 COLOG UARD cologuard result reportable NEGATI VE negati ve normal The Colog uard Plus (TM) test was perfo rmed on this speci men. NEGAT IVONE TEST RESUL T. A negat ivone (norm al) Colog uard Plus resul t means the patie nt has a less- than- avera ge chanc e of havin g color ectal cance r (CRC) or advan christian preca ncer (poly ps or lesio ns that could becom e cance r). Negat ivone is the carlos manuel l value (refe rence range ) for this assay . Guide lines recom mend scree samm again 3 years after a negat ivone Colog uard Plus resul t. Maureen nued scree samm incre ases the chanc e of findi ng CRC early or preve nting it entir meaghan. A clini qi valid ation study showe d the Colog uard Plus test is effec tive at rulin g out CRC. Out of every 10,00 0 patie nts testi ng negat ivone, appro ximat meaghan 2 will be false ly reass ured that they do not have CRC, and out of every 100 patie nts testi ng negat ivone, appro ximat meaghan 7 patie nts will be false ly reass ured they do not have advan christian preca ncer. TEST DESCR IPTIO N: The Colog uard Plus test is a multi -targ et stool DNA (mt-s DNA) test that rei zes DNA and hemog lobin bioma rkers in stool . It uses a propr ietar y algor ithm to quali tattobi meaghan detec t CRC and advan christian preca ncer. It is FDA-a pprov ed and indic ated for use in adult s 45 years or older at avera ge risk for CRC. A posit ivone (abno rmal) resul t shoul d be follo wed by a colon oscop y. Patie nts with a negat ivone (norm al) resul t shoul d scree n again in 3 years . False posit ivone and false negat ivone resul ts may occur . The USPST F recom mends the Colog uard test as a CRC scree samm optio n. Their model ing estim ates that scree samm with the test every 3 years from ages 45-85 could preve nt up to 73% of CRC and avoid up to 85% of CRC s. A 1-pat ient clini qi trial found the Colog uard Plus test effec tivel y detec ts CRC and preca ncer. The study found the test was 95% sensi tive for CRC, 43% sensi tive for advan christian preca ncer, and had a 91% speci ficit y ([place] guard Plus Clini erasto Broch ure. Exact Scien reba Corpo ratio n. [facility] on, [place].). Visit www.[employer] [facility] [employer] /cynthiau t/acc uracy -sens itivi ty-sp [facility] for more test infor matio n, refer michellees , warni ngs, and preca ution s. Not Available [facility] [address], [place], [address], 01/25/2025 15:56:27 09/29/19 25 09/28/2024 MAMMO , scree samm, bilat eral No observ ation record ed. [email or web address] [facility] [address] [place], [address], 10/01/2024 12:43:12 Result Notes None recorded. Problems Name Problem SNOMED Code Status Onset Date Resolution Date Notes Provider Name and Address Organization Details Recorded Time Hypercholester olemia 39731481 Active 2021 GEOFFREY ROSAS null, [facility] 5 10:52:11 Osteoarthritis 282189678 Active 2022 GEOFFREY ROSAS null, [facility] 5 10:52:11 Chronic low back pain 042221211 Active 2022 GEOFFREY ROSAS null, [facility] 5 10:52:11 Cerebrovascula r accident 100430624 Active 2022 GEOFFREY ROSAS null, [facility] 5 10:52:11 Low back pain 274998940 Active 2023 GEOFFREY ROSAS null, [facility] 5 10:52:11 Major depressive disorder 461415356 Active 2023 GEOFFREY ROSAS null, [facility] 5 10:52:11 Fatigue 88492718 Active 2024 GEOFFREY ROSAS null, [facility] 5 15:50:48 Diabetes mellitus 38577232 Active 2024 GEOFFREY ROSAS null, [facility] 5 15:50:35 Allergic rhinitis 67170229 Active 2024 GEOFFREY ROSAS null, [facility] 5 15:50:43 Chronic constipation 092460211 Active 2024 Marcus Mckeon MD [address] [place] [address], [address], [facility] 5 11:52:42 Decrease in appetite 71760226 Active 2024 Marcus Mckeon MD [address] [place], [address], [facility], AshleyLPaul 5 11:55:07 Problem Notes None recorded. Procedures Surgical History Date Name Laterality Status Provider Name and Address Organization Details Recorded Time 5 colonoscopy completed SHERLEY BREWSTER, HEAD RIGGER [address] [place], [address], [facility], Lisa 01/25/2025 17:53:19 5 screening mammography completed GEOFFREY ROSAS [facility], AshleyLGeremiasCGeremias 10/01/2024 12:43:54 Imaging Results None recorded. Procedure Notes None recorded. Medical Equipment None Reported. Allergies Allergen ID Allergen Name Allergen Category Reaction Reaction Severity Criticality Documentation Date Start Date Code Code System Note Provider Name and Address Organization Details Recorded Time 21290 Flagyl medicatio n Not available Not available Not available 01/29/2023 [address] [facility] 4 10:54:08 [address]01 glucosami ne sulfate medicatio n Not available Not available Not available 01/29/[address] [facility] 4 10:54:15 Medications Name Sig Start Date Stop Date Status Note LastModified by Organization Details LastModified Time venlafaxi ne ER 37.5 mg capsule,e xtended release 24 hr TAKE 1 CAPSULE BY MOUTH ONCE DAILY FOR 7 DAYS 06/22 completed Not Available Not Available Not Available venlafaxi ne ER 75 mg capsule,e xtended release 24 hr TAKE 1 CAPSULE BY MOUTH ONCE DAILY 04/01 completed Not Available Not Available Not Available atorvasta tin 20 mg tablet Take 1 tablet by mouth once daily 2024 active Not Available Not Available Not Avai lable cetirizin e 10 mg tablet Take 1 tablet by mouth once daily 2024 active Not Available Not Available Not Avai lable tizanidin e 4 mg tablet TAKE 1 TABLET BY MOUTH TWICE DAILY NEEDED FOR MUSCLE SPASTICI TY 10/17 completed Not Available Not Available Not Available venlafaxi ne ER 150 mg capsule,e xtended release 24 hr Take 1 capsule by mouth once daily 2024 active Not Available Not Available Not Avai lable hydrocodo ne 7.5 mg-acetam inophen 325 mg tablet 10/17 completed Not Available Not Available Not Available pantopraz ole 40 mg tablet,de layed release TAKE 1 TABLET BY MOUTH ONCE DAILY active Not Available Not Available No t Available metformin 1,000 mg tablet TAKE 1 TABLET BY MOUTH TWICE DAILY 04/12 completed Not Available Not Available Not Available gabapenti n 300 mg capsule TAKE 1 CAPSULE BY MOUTH IN THE MORNING AND 2 AT BEDTIME 12/24 completed Not Available Not Available Not Available fluticaso ne propionat e 50 mcg/actua tion nasal spray,jordyn pension USE 2 SPRAY(S) IN EACH NOSTRIL ONCE DAILY NEEDED active Not Available Not Available No t Available sertralin e 50 mg tablet TAKE 1 TABLET BY MOUTH ONCE DAILY IN THE MORNING 03/09 completed Not Available Not Available Not Available azithromy jared 500 mg tablet TAKE 1 TABLET BY MOUTH ONCE DAILY FOR 5 DAYS 10/01 completed Not Available Not Available Not Available bupropion HCl XL 150 mg 24 hr tablet, extended release TAKE 1 TABLET BY MOUTH ONCE DAILY. STOP SERTRALI NE 03/09 completed Not Available Not Available Not Available metoprolo l tartrate 25 mg tablet TAKE 1 TABLET BY MOUTH DAILY 04/01 completed Not Available Not Available Not Available nitrofura ntoin monohydra te/macroc rystals 100 mg capsule TAKE 1 CAPSULE BY MOUTH EVERY 12 HOURS FOR 7 DAYS 02/17 completed Not Available Not Available Not Available atorvasta tin qd 04/12 completed RM/CC; Recorded 02/16/20 22 7:33AM by Marcus Mckeon MD, Refill Request; Refill Quantity : 90; Tablet; Not Available Not Available Not Available aspirin daily active Not Available Not Avail able Not Available metoclopr amide HCl three times daily 04/12 completed Recorded 02/27/20 20 1:50PM by Monet Jones LPN, Office Visit; Refill Quantity : 90; Tablet; Not Available Not Available Not Available Fish Oil daily active Not Available Not Avai lable Not Available metformin two times daily 04/12 completed Recorded 11/03/19 8:06AM by Marcus Mckeon MD, Refill Request; Refill Quantity : 180; Tablet; Not Available Not Available Not Available Accu-Chek Malinda Plus test strips USE 1 STRIP TO CHECK GLUCOSE ONCE DAILY 2023 active Not Available Not Available Not Avai lable Ozempic 0.25 mg or 0.5 mg (2 mg/1.5 mL) subcutane ous pen injector Inject 0.5 mg every week by subcutan eous route for 28 days. 12/20 completed Not Available Not Available Not Available Ozempic 1 mg/dose (4 mg/3 mL) subcutane ous pen injector Inject 1 mg every week by subcutan eous route as directed for 28 days. 12/20 completed Not Available Not Available Not Available Mounjaro 5 mg/0.5 mL subcutane ous pen injector INJECT 5 MG SUBCUTAN EOUSLY WEEKLY AFTER 4 WEEKS OF USING 2.5 MG active Not Available Not Available No t Available Mounjaro 2.5 mg/0.5 mL subcutane ous pen injector INJECT 2.5 MG SUB-Q ONCE WEEKLY FOR 28 DAYS 04/12 completed Not Available Not Available Not Available Ozempic 0.25 mg or 0.5 mg (2 mg/3 mL) subcutane ous pen injector INJECT 0.25MG SUBCUTAN EOUSLY ONCE WEEKLY FOR 4 WEEKS, THEN 0.5MG SUB-Q WEEKLY FOR 4 WEEKS, THEN INCREASE TO 1MG PRESCRIP TION 12/20 completed Not Available Not Available Not Available Vitals Date Recorded Body weight Body mass index (BMI) Body height Heart rate Systolic And Diastolic Provider Name and Address Organization Details Last Updated DateTime 10/18/2023 183941.9 4 g 46.3 kg/m2 162.56 cm 74 /min 142/70 mm[Hg] JAGRUTI ALCANTARA [facility] 16:09:58 Date Recorded Body height Body mass index (BMI) Body weight Oxygen saturation Heart rate Systolic And Diastolic Provider Name and Address Organization Details Last Updated DateTime 4 162.56 cm 29.4 kg/m2 63142.3 g 97 % 76 /min 110/72 mm[Hg] GEOFFREY ROSAS [facility] 4 12:17:10 Date Recorded Body height Body mass index (BMI) Body weight Oxygen saturation Heart rate Systolic And Diastolic Provider Name and Address Organization Details Last Updated DateTime 5 162.56 cm 25.7 kg/m2 10023.8 6 g 96 % 92 /min 110/70 mm[Hg] GEOFFREYRenata ROSAS [facility] 5 10:59:10 Date Recorded Body height Body mass index (BMI) Body weight Heart rate Systolic And Diastolic Provider Name and Address Organization Details Last Updated DateTime 04/01/2025 162.56 cm 23.2 kg/m2 72817.97 g 70 /min 112/60 mm[Hg] JAGRUTI ALCANTARA [facility] 5 11:25:41 Date Recorded Body height Body mass index (BMI) Body weight Oxygen saturation Heart rate Systolic And Diastolic Provider Name and Address Organization Details Last Updated DateTime 4 162.56 cm 27.6 kg/m2 92593.3 7 g 99 % 72 /min 128/70 mm[Hg] GEOFFREYRenata ROSAS [facility] 4 11:54:59 Social History Question Answer Notes LastModified by Project 2020 Details LastModified Time Tobacco Smoking Status Never Smoker GEOFFREY ROSAS [facility] 10/01/2022 10:47:52 What Was The Date Of Your Most Recent Tobacco Screening? 04/01/2025 [email or web address] Information not available 04/01/2025 Sex: Unknown Functional Status Question Answer Note LastModified by Project 2020 Details LastModified Time Do you use any illicit or recreational drugs? No [email or web address] Information not available 10/01/2022 What is your level of alcohol consumption? None [email or web address] Information not available 10/01/2022 Mental Status None recorded. Family History Nothing Reported. Medical History No medical history recorded. Gynecological HistoryNo gynecological history recorded. Obstetrics History GPAL:G 0 P 0 0 0 0 Immunizations Vaccine Type Date Status Note Provider Nam e and Address Organization Details Recorded Time Influenza, split virus, trivalent, preservative 0 completed Not Available [facility] 04/12/2023 15:48:01 pneumococcal polysaccharide PPV23 9 completed Not Available [facility] 04/12/2023 15:48:01 Influenza, split virus, trivalent, preservative 7 completed Not Available [facility] 04/12/2023 15:48:01 Tdap 7 completed Not Available [facility] 04/12/2023 15:48:01 COVID-19, mRNA, LNP-S, PF, 100 mcg/0.5mL dose or 50 mcg/0.25mL dose [address] [facility] 12/28/2022 16:04:39 COVID-19, mRNA, LNP-S, PF, 100 mcg/0.5mL dose or 50 mcg/0.25mL dose [address] [facility] 12/28/2022 16:04:39 Past Encounters Encounter ID Performer Location Encounter Start Date Encounter Closed Date Diagnosis/Indication Diagnosis SNOMED-CT Code Diagnosis ICD10 Code Diagnosis IMO Codes Diagnosis Note [id number] Marcus Mckeon MD [facility] ([facility]) [address] [place] [address] [phone] 5 10/01/2022 10:19:06 10/10/2022 22:15:45 Diabetes mellitus 20572410 E11.9 Adult heal th examination 271188088 Z00.01 Osteoarthritis 963295930 M19.90 Chronic low back pain 27 2008715 M54.50 [id number] Marcus Mckeon MD [facility] ([facility]) [address] [place] [address] [phone] 12/28/2022 15:49:58 12/28/2022 16:46:05 Cerebrovascular accident 917473637 I63.9 TIA, mostly resolved with right sided weakness, improved. She has a history of a CVA and had a normal recent CT head. Continue the ASA 81mg daily. Diabetes mellitus 867799 09 E11.9 better control with Mounjaro. [id number] Marcus Mckeon MD [facility] ([facility]) [address] [place] [address] [phone] 04/12/2023 15:47:46 04/12/2023 19:05:08 Diabetes mellitus 55674084 E13.9 better control with Mounjaro. Cerebrovas cular accident 126814777 I63.9 ASA 81mg daily Osteoarthritis 152093627 M19.90 Chronic low back pain 27 1102958 M54.50 [id number] Marcus Mckeon MD [facility] ([facility]) [address] [place] [address] [id number] 10/18/2023 15:55:40 10/18/2023 16:46:22 Cerebrovascular accident 316481316 I63.9 ASA 81mg daily Osteoarthritis 772409952 M19.90 Diabetes mellitus 790010 09 E13.9 better control with Mounjaro. Hypercholesterolemia 136 40199 E78.00 Chronic low back pain 27 1184359 M54.50 Low back pain 850589815 M54.50 Depressive disorder 3548 9007 F32.9 Polyuria 67162930 R35.89 Type 2 madhuri betes mellitus 60650909 E11.9 [id number] Marcus Mckeon MD [facility] ([facility]) [address] [place] [address] [id number] 5 12/21/2023 11:56:53 12/21/2023 13:08:10 Diabetes mellitus 55668352 E11.9 better control with Mounjaro. Cerebrovas cular accident 046357467 I63.9 ASA 81mg daily She needs a handicappe d license plate and will fill out a form. Major depr essive disorder 264623154 F32.9 khadra 6 years ago Polyuria 25744136 R35.89 [id number] Marcus Mckeon MD [facility] ([facility]) [address] [place] [address] [id number] 5 06/22/2024 11:42:36 06/25/2024 11:15:51 Major depressive disorder 899700908 F32.9 khadra 6 years ago Depressive disorder 3548 9007 F32.9 Hypercholesterolemia 136 44695 E78.00 Diabetes mellitus 929202 09 E11.9 Much better control with Mounjaro. [id number] Marcus Mckeon MD [facility] ([facility]) [address] [place] [address] [phone] 5 12/24/2024 10:40:19 12/24/2024 13:24:48 Diabetes mellitus 04115937 E11.9 66632 Much better control with Mounjaro. Depressive disorder 3548 9007 F32.9 Fatigue 12641223 R53.83 22374005 Major depr essive disorder 767347359 F32.9 Allergic rhinitis 730767 04 J30.9 08139008 [id number] Marcus Mckeon MD [facility] ([facility]) [address] [place] [address] [id number] 04/01/2025 11:07:22 04/01/2025 12:25:22 Major depressive disorder 902526735 F32.9 Osteoarthritis 443813881 M19.90 Diabetes mellitus 244383 09 E11.9 69214 Much better control with Mounjaro. Will back off to every other week due to significan t weight loss. Fatigue 86307526 R53.83 55535846 Chronic constipation 236 876901 K59.09 445806 Fall in home 70821576 W1 9.XXXD Y92.635 0335738 Will stop her Metoprolol due to this and monitor. Decrease in appetite 643 22643 R63.0 [id number] will try taking Mounjaro ever 2-3 weeks to monitor this. Health Concerns Section Related Observation LastModified by Organization Detai ls LastModified Time None Recorded Concern Status LastModified by Organization Details LastModified Time None Recorded Advance Directives Directive None Recorded Payers Insurance Date Sequence Insurance Name Policy Number Policy Randle Covered Member ID Randle Member ID Guarantor Name 03/29/2025 [place] A - [facility] (MEDICARE) Stephy Causey [id number] Stephy Causey 03/29/2025 1 [place]: [employer] Stephy Causey [id number] Stephy Causey 04/04/2025 2 [facility] [id number] Daniel Causey [id number] Stephy Lopez Padilla Notes Date Note Type Note Provider Name and Address Organization Details Recorded Time 4 text/html DiabetesReported by PatientHPIFor review finger sticks, patient reportsfastin-120. For compliance, patient reportscompliant with medicationsandcompliant with follow-up visits. For associated symptoms, patient reportsno weight gain,no weight loss,no dizziness,no sweats,no headaches, andno confusion. Anxiety/DepressionReported by PatientHPIFor severity, patient reportsinterference with sleepbut reportsdenies suicidal ideationsandable to maintain relationships. For associated symptoms, patient reportsanxiety,depression, andinsomniabut reportsdenies homicidal ideations,no significant weight gain,no significant weight loss, andno shortness of breath. For context, patient reportsno major life stressors. Back PainReported by PatientHPIFor severity, patient reportsunchanged. Marcus Mckeon MD [address] [place] [address], [phone], [facility] 10/18/2023 16:38:31 4 text/html DiabetesReported by PatientHPIFor associated symptoms, patient reportsincreased urinationbut reportsno increased thirstandno increased appetite. For duration, patient reportschronic. For control, patient reportstreated with __ (mounjaro.). For self care, patient reportsmonitoring glucose daily. Anxiety/DepressionReported by PatientHPIFor severity, patient reportsinterference with activities of daily living. For associated symptoms, patient reportshigh irritability,anxiety,depres shahnaz,decreased energy, andfatigue. For modifying factors, patient reportsmedications as directed. Marcus Mckeon MD [address] [place] [address], [phone], [facility] 12/21/2023 13:07:36 4 text/html DiabetesReported by PatientHPIFor duration, patient reportschronic. For control, patient reportsusually well controlled,improved since last visit, andtreated with __ (mounjaro.). For compliance, patient reportscompliant with medications,compliant with follow-up visits, andcompliant with diet. For self care, patient reportsmonitoring glucose daily. For associated symptoms, patient reportsno increased thirst,no increased appetite, andno increased urination. Anxiety/DepressionReported by PatientHPIFor severity, patient reportsinterference with activities of daily living (at times.)but reportsdenies suicidal ideationsandable to maintain relationships. For associated symptoms, patient reportsdepression,decreased energy, andfatiguebut reportsno anxiety. For onset/timing, patient reportsgradual. For modifying factors, patient reportsmedications as directed (venlafaxine.). Marcus Mckeon MD [address] [place] [address], [phone], [facility] 06/22/2024 12:13:38 5 text/html DiabetesReported by PatientHPIFor duration, patient reportschronic. For control, patient reportstreated with diet and oral medications (mounjaro.). For compliance, patient reportscompliant with medicationsandcompliant with follow-up visits. For self care, patient reportsmonitoring glucose weekly. For associated symptoms, patient reportsno increased thirst,no increased appetite, andno increased urination. Anxiety/DepressionReported by PatientHPIFor severity, patient reportsinterference with activities of daily livingbut reportsdenies suicidal ideations. For associated symptoms, patient reportshigh irritability,anxiety,depres shahnaz, andfatigue. For onset/timing, patient reportsgradual. For modifying factors, patient reportsmedications as directed. Has stopped taking her gabapentin about a month ago, felt like it was not helping her.Has been having some dizziness, nausea, and headaches for about two months but has been worse here lately. She feels frail Has had a lot of tick bites lately, would like to discuss. Marcus Mckeon MD [address] [place], [phone], [facility] 12/24/2024 11:51:32 09/29/202 5 text/html DiabetesReported by PatientHPIFor associated symptoms, patient reportsweight loss (___ lbs),dizziness, andheadaches. For review finger sticks, patient reportsfastin. For control, patient reportsusually well controlledandimproved since last visit. For compliance, patient reportscompliant with medications,compliant with follow-up visits,compliant with diet, andcompliant with home glucose monitoring. For self care, patient reportsmonitoring glucose daily,seeing eye doctor regularly, andtaking aspirin daily. FatigueReported by PatientHPIFor associated symptoms, patient reportsdepression,anxiety,s leep disturbances, anddizziness. Marcus Mckeon MD [address] [place] [address], [phone], [facility], Lisa 04/01/2025 11:59:27 OBGyn Episode No OBEpisode recorded.
--- OUTSIDE RECORDS SUMMARY | 2025-06-19 18:22 | XMS_ITS | Continuity of Care Document ---
Author Organization [facility] Luther, Lisa, [facility] ([facility]) Address [address] [place] [address] Care Team Providers Care Skimmer Name Role Phone MARCUS MCKEON Primary Care Provider Unavailabl e Assessment No assessment recorded. Plan of Treatment Reminders Order Date Submit Date Provider Last Modified By Organization Details Last Modified Time Details Appointments OFFICE VISIT 15 2025 10:00A Claudette Mckeon MD Not available Not available Not available Lab None recorded . Referral None recorded . Procedures None recorded . Surgeries None recorded . Imaging None recorded . Medication Orders None recorded . Patient TargetsNo targets recorded. Patient InstructionsNo instructions recorded. Reason for Referral None Reported. Problems Name Problem SNOMED Code Status Onset Date Resolution Date Notes Provider Name and Address Organization Details Recorded Time Hypercholester olemia 96877052 Active 2021 GEOFFREY goldman [facility] 5 10:52:11 Osteoarthritis 204897081 Active 2022 GEOFFREY goldman [facility] 5 10:52:11 Chronic low back pain 356373562 Active 2022 GEOFFREY goldman [facility] 5 10:52:11 Cerebrovascula r accident 588971310 Active 2022 GEOFFREY goldman [facility] 5 10:52:11 Low back pain 334229362 Active 2023 GEOFFREY ROSAS [facility] 10:52:11 Major depressive disorder 515274614 Active 2023 [facility] 10:52:11 Fatigue 59602154 Active 2024 [facility] 15:50:48 Diabetes mellitus 34436337 Active 2024 [facility] 15:50:35 Allergic rhinitis 44934467 Active 2024 [facility] 15:50:43 Chronic constipation 128931122 Active 2024 Marcus Mckeon MD [address] [place] [address], [phone], [facility] 11:52:42 Decrease in appetite 44373404 Active 2024 Marcus Mckeon MD [address] [place] [address], [phone], [facility] 11:55:07 Problem Notes None recorded. Procedures Surgical History Date Name Laterality Status Provider Name and Address Organization Details Recorded Time 5 colonoscopy completed ELLIE MERCEDES [address] [place] [address], [phone], [facility] 01/25/2025 17:53:[address] [facility] 10/01/2024 12:43:54 Imaging Results None recorded. Procedure Notes None recorded. Medical Equipment None Reported. Allergies Allergen ID Allergen Name Allergen Category Reaction Reaction Severity Criticality Documentation Date Start Date Code Code System Note Provider Name and Address Organization Details Recorded Time 92958 Flagyl medicatio n Not available Not available Not available 01/29/2023 02409 6 RxNorm [facility] 10:54:08 19073 glucosami ne sulfate medicatio n Not available Not available Not available 01/29/2023 4847 RxNorm [facility] 4 10:54:15 Medications Name Sig Start Date [...] ne propionat e 50 mcg/actua tion nasal spray,john pension USE 2 SPRAY(S) IN EACH NOSTRIL [...] two times daily 04/12 completed Recorded 11/03/19 22 8:06AM by Marcus Mckeon MD, Refill Request; [...] Available Not Available Vitals Date Recorded Body height Body mass index (BMI) Body weight Heart rate Systolic And Diastolic Provider Name and Address Organization Details Last Updated DateTime 04/01/2025 162.56 cm 23.2 kg/m2 56561.97 g 70 /min 112/60 mm[Hg] JAGRUTI ALCANTARA [facility] 11:25:41 Social History Question Answer Notes LastModified by [employer] Details LastModified Time Tobacco Smoking Status Never Smoker GEOFFREY goldman, [facility] 10/01/2022 10:47:52 What Was The Date Of Your Most Recent Tobacco Screening? 04/01/2025 [email or web address] Information not available 04/01/2025 Sex: Unknown Functional Status Question Answer Note LastModified by Organizat ion Details LastModified Time Do you use any illicit or recreational drugs? No [email or web address] Information not available 10/01/2022 What is your level of alcohol consumption? None [email or web address] Information not available 10/01/2022 Mental Status None recorded. Family History Nothing Reported. Medical History No medical history recorded. Gynecological HistoryNo gynecological history recorded. Obstetrics History GPAL:G 0 P 0 0 0 0 Immunizations Vaccine Type Date Status Note Provider Nam e and Address Organization Details Recorded Time Influenza, split virus, trivalent, preservative 0 completed Not Available [facility] 04/12/2023 15:48:01 pneumococcal polysaccharide PPV23 9 completed Not Available [facility] 04/12/2023 15:48:01 Influenza, split virus, trivalent, preservative 7 completed Not Available [facility] 04/12/2023 15:48:01 Tdap 7 completed Not Available [facility] 04/12/2023 15:48:01 COVID-19, mRNA, LNP-S, PF, 100 mcg/0.5mL dose or 50 mcg/0.25mL dose 1 completed GEOFFREY goldman [facility] 12/28/2022 16:04:39 COVID-19, mRNA, LNP-S, PF, 100 mcg/0.5mL dose or 50 mcg/0.25mL dose 1 completed GEOFFREY goldman [facility] 12/28/2022 16:04:39 Past Encounters Encounter ID Performer Location Encounter Start Date Encounter Closed Date Diagnosis/Indication Diagnosis SNOMED-CT Code Diagnosis ICD10 Code Diagnosis IMO Codes Diagnosis Note [id number] Marcus Mckeon MD [facility] ([facility]) [address] [place] [phone] 04/01/2025 11:07:22 04/01/2025 12:25:22 Major depressive disorder 316723964 F32.9 Osteoarthritis 237480088 M19.90 Diabetes mellitus 141257 09 E11.9 78083 Much better control with Mounjaro. Will back off to every other week due to significan t weight loss. Fatigue 75775069 R53.83 17609402 Chronic constipation 236 554517 K59.09 757030 Fall in home 03382855 W1 9.XXXD Y92.130 7206218 Will stop her Metoprolol due to this and monitor. Decrease in appetite 643 31667 R63.0 266089 will try taking Mounjaro ever 2-3 weeks to monitor this. Health Concerns Section Related Observation LastModified by Organization Sole weiner LastModified Time None Recorded Concern Status LastModified by Organization Details LastModified Time None Recorded Payers Encounter Date Sequence Insurance Name Policy Number Policy Randle Covered Member ID Randle Member ID Guarantor Name 04/01/2025 1 [place]: [employer] Stephy Causey [id number] Stephy Causey 04/01/2025 2 [facility] [id number] Daniel Causey [id number] Stephy Causey Notes Date Note Type Note Provider Name and Address Organization Details Recorded Time 04/01/2025 text/html DiabetesReported by PatientHPIFor associated symptoms, patient reportsweight loss (___ lbs),dizziness, andheadaches. For review finger sticks, patient reportsfastin. For control, patient reportsusually well controlledandimproved since last visit. For compliance, patient reportscompliant with medications,compliant with follow-up visits,compliant with diet, andcompliant with home glucose monitoring. For self care, patient reportsmonitoring glucose daily,seeing eye doctor regularly, andtaking aspirin daily. FatigueReported by PatientHPIFor associated symptoms, patient reportsdepression,anxi ety,sleep disturbances, anddizziness. Marcsu Mckeon MD [address] [place] [address], [phone], [facility] 04/01/2025 11:59:27 OBGyn Episode No OBEpisode recorded.
--- NOTE | 2025-06-19 18:32 | CTR_ITS ---
PROCEDURE INFORMATION: Exam: CT Chest Without Contrast; Diagnostic Exam date and time: 06/19/2025 6:51 PM Age: 75 years old Clinical indication: Injury or trauma; Fall; Blunt trauma (contusions or hematomas); Injury date: 06/18/2025; Additional info: Traumatic chest pain, RT side TECHNIQUE: Imaging protocol: Diagnostic computed tomography of the chest without contrast. Radiation optimization: All CT scans at this facility use at least one of these dose optimization techniques: automated exposure control; mA and/or kV adjustment per patient size (includes targeted exams where dose is matched to clinical indication); or iterative reconstruction. COMPARISON: CR XR chest 1V portable [id number] 08/01/2023 4:06 PM RADIATION DOSE METRICS: Total DLP (mGy-cm): 288.76 FINDINGS: Limitations: Evaluation of solid organs, viscera, and vasculature is limited without intravenous contrast. Tubes, catheters and devices: None. Thyroid: Unremarkable. Trachea: Trachea and central airways are patent. Lungs: Unremarkable. No consolidation. Lung nodules: No suspicious nodules. Pleural spaces: No pneumothorax. No pleural effusion. Heart: No cardiomegaly. No pericardial effusion. Coronary arteries: Coronary artery calcifications are present. Esophagus: Unremarkable. Mediastinal space: Unremarkable. Lymph nodes: No mediastinal or axillary lymphadenopathy. Vasculature: Moderate atherosclerotic calcification of the aortic arch. No thoracic aortic aneurysm. Bones/joints: Diffusely decreased bone density. Acute nondisplaced, nonsegmental fractures of the right posterior 10th and 11th ribs at their respective costotransverse junctions. Mild superior endplate compression fracture of T11 with approximately 10% height loss without bony retropulsion. Soft tissues: Unremarkable. CT/[facility] [id number] IMPRESSION: 1. Acute nondisplaced, nonsegmental fractures of the right posterior 10th and 11th ribs at their respective costotransverse junctions. 2. Mild superior endplate compression fracture of T11 vertebral body. 3. Coronary artery calcifications.
--- NOTE | 2025-06-19 18:32 | W.ED.BACK ---
HPI - Back Pain/Injury General: Chief Complaint: Back Pain/Injury Stated Complaint: Fell hurt low RT back ribs Time Seen by Provider: 06/19/25 18:21 History of Present Illness: 75-year-old female with a history of hyperlipidemia, stroke, coronary artery disease, obstructive sleep apnea, arthritis who presents to the emergency room with right lateral rib pain after a fall yesterday. She says she was walking in the kitchen when her foot caught the corner of a box and she fell onto her right side. She did take a friend's hydrocodone but it helped some. No anticoagulation. No head injury. No loss of consciousness. No altered mental status. Related Data Home Medications ?Medication ?Instructions ?Recorded ?Confirmed aspirin 81 mg tablet,delayed 81 mg PO DAILY 10/09/19 03/01/23 release (Adult Low Dose Aspirin) atorvastatin 10 mg tablet 10 mg PO DAILY 10/09/19 03/01/23 coenzyme Q10 100 mg capsule (Co 100 mg PO DAILY 10/09/19 03/01/23 Q-10) omega-3 fatty acids 1,000 mg 1,000 mg PO DAILY 10/09/19 03/01/23 capsule (Fish Oil Concentrate) pantoprazole 40 mg tablet,delayed 40 mg PO DAILY 04/25/20 03/01/23 release gabapentin 300 mg capsule 300 mg PO BID 06/30/22 03/01/23 lutein 40 mg capsule 40 mg PO DAILY 06/30/22 03/01/23 fluticasone propionate 50 1 spray intranasal BID PRN 03/01/23 mcg/actuation nasal spray,suspension (Flonase Allergy Relief) metoprolol tartrate 25 mg tablet 25 mg PO DAILY 03/01/23 03/01/23 tirzepatide 2.5 mg/0.5 mL mg SUBCUT .weekly 03/01/23 03/01/23 subcutaneous pen injector (Laurent) Previous Rx's ?Medication ?Instructions ?Recorded cetirizine 10 mg capsule (Zyrtec) 10 mg PO DAILY #30 caps 08/26/22 magnesium citrate 296 ml PO ONCE #296 mL 06/19/25 oxycodone 5 mg tablet 5 mg PO Q8H PRN pain #20 tabs 06/19/25 polyethylene glycol 3350 17 17 g PO DAILY #510 grams 06/19/25 gram/dose oral powder (Miralax) Allergies Allergy/AdvReac Type Severity Reaction Status Date / Time metronidazole Allergy Unknown Unknown Verified 06/19/25 18:24 procaine (From Novocain) Allergy Unknown Unknown Verified 06/19/25 18:24 Review of Systems Narrative: Constitutional symptoms: Negative except as documented in HPI. Skin symptoms: Negative except as documented in HPI. Eye symptoms: Negative except as documented in HPI. ENMT symptoms: Negative except as documented in HPI. Respiratory symptoms: Negative except as documented in HPI. Cardiovascular symptoms: Negative except as documented in HPI. Gastrointestinal symptoms: Negative except as documented in HPI. Genitourinary symptoms: Negative except as documented in HPI. Musculoskeletal symptoms: Negative except as documented in HPI. Neurologic symptoms: Negative except as documented in HPI. Psychiatric symptoms: Negative except as documented in HPI. Endocrine symptoms: Negative except as documented in HPI. PFSH ED PFSH: Medical History (Updated 06/19/25 @ 20:01 by Aditi Saravia MD) Hyperlipidemia associated with type 2 diabetes mellitus History of CVA (cerebrovascular accident) ASHD (arteriosclerotic heart disease) Family History Other CAD (coronary artery disease) Diabetes Stroke Social History Smoking and tobacco/nicotine status: never used tobacco/nicotine Alcohol intake: never Substance/Drug Use: never Caregiver/support person: Yes Lives independently: Yes Physical Exam Narrative: EXAM NARRATIVE: General: Alert, no acute distress. Skin: Warm, dry. Head: Normocephalic, atraumatic. Neck: Supple, trachea midline. Eye: Extraocular movements are intact. Ears, nose, mouth and throat: mucosa moist. Cardiovascular: Regular, Normal peripheral perfusion. Respiratory: Lungs are clear to auscultation, respirations are non-labored, breath sounds are equal, Symmetrical chest wall expansion. Patient is exquisitely tender to palpation on the right mid lateral rib cage. Gastrointestinal: Soft, Nontender, Non distended Musculoskeletal: Normal ROM, no deformity. Neurological: Alert and oriented, No focal neurological deficit observed. Psychiatric: Cooperative, appropriate mood & affect. Course Vital Signs: Vital signs: Vital Signs Temperature 97.5 F L 06/19/25 18:19 Pulse Rate 69 06/19/25 18:33 Respiratory Rate 18 06/19/25 18:19 Blood Pressure 160/82 06/19/25 18:19 Pulse Oximetry 98 06/19/25 18:33 Oxygen Delivery Me thod Room Air 06/19/25 18:33 MDM - Back Pain/Injury Medical Decision Making Medical decision making Patient's reason for coming to the emergency room: Traumatic rib pain Social determinants: Patient is retired and . is present. I reviewed the patient's medical record. 75-year-old female with a history of hyperlipidemia, stroke, coronary artery disease, obstructive sleep apnea, arthritis I reviewed the patient's current home meds No anticoagulation Alternate historians: None Differential diagnosis: including but not limited to and based on the above HPI, review of systems and physical exam: In this patient with traumatic rib pain would have concern for rib fracture, rib contusion, pneumothorax, pulmonary contusion, hemothorax. Orders placed to evaluate differential diagnosis based on the above differential, HPI and physical exam CT of the chest without contrast: Acute nondisplaced nonsegmental fractures of the right posterior 10th and 11th ribs mild superior endplate compression fracture at T11. This was reviewed and interpreted by myself the emergency room physician. I also reviewed the radiology report. Reexamination: No oxygen requirements. Pain well-controlled. No increased work of breathing. We discussed using incentive spirometer and respiratory therapy is instructing. Assessment and plan: Rib fractures Vertebral compression fracture Fall ? IV Dilaudid and Zofran in the emergency room. 1 oxycodone prior to discharge and 1 for home. - Discharged home - Discussed plan with patient. Answered any questions. - Evaluation and treatment of this problem were appropriate in the emergency setting. My discharge none Labs Radiology Impressions Chest CT 06/19/25 18:32 IMPRESSION: 1. Acute nondisplaced, nonsegmental fractures of the right posterior 10th and 11th ribs at their respective costotransverse junctions. 2. Mild superior endplate compression fracture of T11 vertebral body. 3. Coronary artery calcifications. All radiology interpretation(s) finalized by discharge Discharge Plan Discharge Patient Disposition: Home Clinical Impression: Rib fractures, Constipation, Vertebral compression fracture Condition: Stable Prescriptions: New polyethylene glycol 3350 [Miralax] 17 gram/dose powder 17 g PO DAILY Qty: 510 0RF Rx Instructions: Take 1 scoop daily while taking pain medications. magnesium citrate Solution 296 ml PO ONCE Qty: 296 0RF oxycodone 5 mg tablet 5 mg PO Q8H PRN (Reason: pain) Qty: 20 0RF No Action aspirin [Adult Low Dose Aspirin] 81 mg tablet,delayed release (DR/EC) 81 mg PO DAILY atorvastatin 10 mg tablet 10 mg PO DAILY omega-3 fatty acids [Fish Oil Concentrate] 1,000 mg capsule 1,000 mg PO DAILY coenzyme Q10 [Co Q-10] 100 mg capsule 100 mg PO DAILY metoprolol tartrate 25 mg tablet 25 mg PO DAILY pantoprazole 40 mg tablet,delayed release (DR/EC) 40 mg PO DAILY Zyrtec 10 mg capsule 10 mg PO DAILY Qty: 30 0RF fluticasone propionate [Flonase Allergy Relief] 50 mcg/actuation spray,suspension 1 spray intranasal BID PRN Rx Instructions: administer into each nostril Mounjaro 2.5 mg/0.5 mL pen injector SUBCUT .weekly gabapentin 300 mg capsule 300 mg PO BID Rx Instructions: 1 capsule in A.M, 2 capsules at bedtime lutein 40 mg capsule 40 mg PO DAILY Rx Instructions: administer with meals Discharge Orders: Discharge ED (Routine); Ordered 06/19/25 Ordered By: Aditi Saravia Referrals: Paulo Mckeon MD [Primary Care Provider, Family Practice] Discharge Diet: Usual diet Discharge Activity: Increase activity as tolerated Patient Instructions: How to Use an Incentive Spirometer (ED), Rib Fracture (ED), Opioid Safety, Pain Management, Patient Portal & Gurdeep Instructions Activity Restrictions/Additional Instructions: Please be sure to use your incentive spirometer at least 2-3 times a day and/or take large deep breaths quite frequently to prevent developing pneumonia. Thank you for choosing [facility] for your healthcare needs today. You have been screened and evaluated and felt safe for discharge. Health conditions do change or evolve sometimes and as such it is important that you follow up with your Primary Doctor to be re checked, 3-5 days is a general good time frame for follow up. You are always welcome to return to the ED for re assessment if your symptoms are worsening or you have new concerns Print Language: Telugu Coding Level of Care Code ED [employer]
[2025-06-19 18:33] VITALS: PULSE 69; O2SAT 98
[2025-06-19] MEDS: ondansetron 2 mg/ML SDV 2 mL 4 MG IVP (18:42)
[2025-06-19] MEDS: HYDROmorphone 0.5 MG/0.5 ML INJ 1 MG IVP (18:43)
[2025-06-19 20:23] VITALS: RESP 16; O2SAT 96
[2025-06-19] MEDS: oxyCODONE 5 mg IR Tab/Cap 10 MG PO ×2 (20:23→20:24)
[2025-06-19 20:44] VITALS: PULSE 78; RESP 18; O2SAT 96
[2025-06-19 21:02] VITALS: BP 147/87; PULSE 72; O2SAT 96
== END 2025-06-19 20:45 | disposition home or self-care (01) ==
PROVIDERS: Emergency Provider Emergency Medicine; PCP Family Medicine
DX: S22.41XA Multiple fractures of ribs, right side, initial encounter for closed fracture (principal); S22.080A Wedge compression fracture of T11-T12 vertebra, initial encounter for closed fracture; K59.00 Constipation, unspecified; Z79.82 Long term (current) use of aspirin; E11.69 Type 2 diabetes mellitus with other specified complication; E78.5 Hyperlipidemia, unspecified; I25.10 Atherosclerotic heart disease of native coronary artery without angina pectoris; W19.XXXA Unspecified fall, initial encounter
CPT/HCPCS: 71250; 96374; 96375; 99285; J1171; J2405; J9999